=== PATIENT | female | born 1990 | race Two or more races ===

== ENCOUNTER 2023-01-11 14:28 | Outpatient (REF) | payer MEDICAID, SELFPAY ==
--- NOTE | ~2023-01-11 | US_ITS ---
EXAMINATION: US THYROID CLINICAL INFORMATION: Enlarged thyroid. COMPARISON: None available. TECHNIQUE: Linear transducer grayscale and color Doppler examination with attention to the region of the thyroid. FINDINGS: SIZE: Measurements of the thyroid lobes and nodules are given in sagittal, anteroposterior and transverse dimensions respectively. Right Thyroid Lobe: 4.8 x 1.4 x 1.2 cm, volume 4.2 mL. Parenchyma: The gland echotexture is homogeneous. Thyroid vascularity is increased. Left Thyroid Lobe: 5.9 x 2.4 x 3.9 cm, volume 28.9 mL. Parenchyma: The gland echotexture is heterogeneous. Thyroid vascularity is increased. Isthmus: 0.3 cm in maximum AP dimension. Estimated total number of nodules greater than or equal to 1 cm: 1. Turkey Boner nodules are described as follows: 1. Location: Right inferior. Size: 0.5 x 0.3 x 0.4 cm, volume 0.03 mL. Nodule characteristics: Composition: Solid (2). Echogenicity: Isoechoic (1). Shape: Not taller than wide (0). Margins: Smooth (0). Echogenic Foci: None (0). ACR TI-RADS total points: 3 ACR TI-RADS category: 3 2. Location: Left mid. Size: 4.5 x 2.3 x 3.6 cm, volume 19.7 mL. Nodule characteristics: Composition: Solid (2). Echogenicity: Hypoechoic (2). Shape: Not taller than wide (0). Margins: Smooth (0). Echogenic Foci: None (0). ACR TI-RADS total points: 4 ACR TI-RADS category: 4 NODES: No lymphadenopathy is seen in the tissue surrounding the thyroid gland. US/US thyroid IMPRESSION: A 4.5 cm TR 4 left thyroid nodule meets criteria for tissue sampling. Hypervascular, mildly heterogeneous thyroid which can be seen in the setting of thyroiditis. No other nodule meets criteria for follow-up. ACR TI-RADS RECOMMENDATION REFERENCE: Ultrasound-guided fine-needle aspiration, followup ultrasound, no further follow up. * TR1 (0 point) and TR2 (2 points): No FNA or follow up. * TR3 (3 points): FNA if more than or equal to 2.5 cm in maximum dimension, followup ultrasound in 1, 3 and 5 years if 1.5 to 2.4 cm in maximum dimension. * TR4 (4-6 points): FNA if more than or equal to 1.5 cm in maximum dimension, followup ultrasound in 1, 2, 3 and 5 years if 1 to 1.4 cm in maximum dimension. * TR5 (more than or equal to 7 points): FNA if more than or equal to 1 cm in maximum dimension, followup ultrasound every year for 5 years if 0.5 to 0.9 cm in maximum dimension. * TR3, TR4 or TR5 nodules that are below the size threshold for followup receive no follow up.
== END 2023-01-11 14:29 | disposition home or self-care (01) ==
LOC: HO.US 14:28
PROVIDERS: PCP Internal Medicine; Visit Provider Advanced Practice Midwife
DX: E04.2 Nontoxic multinodular goiter (principal)
CPT/HCPCS: 76536

== ENCOUNTER → 2023-01-21 11:46 | Outpatient (BNVA) | payer MEDICAID, SELFPAY | PROVIDERS: PCP Internal Medicine; Visit Provider Internal Medicine | DX: E04.2 Nontoxic multinodular goiter (principal) | CPT/HCPCS: 36415; 84439; 84443; 99202 ==

== ENCOUNTER 2023-01-21 12:43 | Outpatient (REF) | payer MEDICAID, SELFPAY ==
[2023-01-21 15:32] LABS: Free T4 (Free Thyroxine) 0.84 ng/dL (0.71-1.85); Thyroid Stimulating Hormone 0.53 uIU/mL (0.32-4.0)
== END 2023-01-21 12:44 | disposition home or self-care (01) ==
LOC: HO.10HDL 12:43
PROVIDERS: Visit Provider Internal Medicine
DX: E04.2 Nontoxic multinodular goiter (principal)
CPT/HCPCS: 36415; 84439; 84443

== ENCOUNTER 2023-03-01 11:19 | Outpatient (REF) | payer MEDICAID, SELFPAY ==
--- NOTE | ~2023-03-01 | CT_ITS ---
EXAMINATION: CT SOFT TISSUE NECK WITHOUT CONTRAST CLINICAL INFORMATION: Nontoxic multinodular goiter COMPARISON: Previous thyroid ultrasound December 2022 TECHNIQUE: Helical imaging was performed in the axial plane with generation of coronal and sagittal reformatted images. This CT examination was performed using dose optimization techniques as appropriate, variously including the following: *Automated exposure control *Adjustment of mA and/or kV according to patient size (this includes techniques or standardized protocols for targeted exams where dose is matched to indication/reason for exam; i.e. extremities or head) *Use of iterative reconstruction technique DLP: 331 mGy-cm FINDINGS: There is a large left thyroid nodule that is essentially occupies the entire left lobe and measures 3 x 3 x 4 cm. This displaces the trachea to the right. No right thyroid nodule is seen. There are no enlarged cervical lymph nodes adjacent to the thyroid gland. There is shotty upper cervical lymphadenopathy. The nasal oral and hypopharynx and larynx are normal.. The salivary glands are normal. The orbits are normal. Visualized paranasal sinuses, mastoid air cells and middle ears are clear. Superior mediastinum is normal. The lung apices are clear. Bony structures are normal. CT/CT soft tissue neck wo IV con IMPRESSION: Large 3 x 3 x 4 cm left thyroid nodule displacing the trachea to the right. No enlarged lymph nodes.
== END 2023-03-01 11:20 | disposition home or self-care (01) ==
LOC: HO.CT 11:19
PROVIDERS: PCP Internal Medicine; Visit Provider Internal Medicine
DX: E04.2 Nontoxic multinodular goiter (principal)
CPT/HCPCS: 70490

== ENCOUNTER 2023-03-30 15:13 | Outpatient (REF) | payer MEDICAID, SELFPAY ==
[2023-03-30 16:19] LABS: MANUAL DIFF FLAG NO
[2023-03-30 16:30] LABS: Basophils Percent Auto 0.3 % (0-2); Eosinophils Percent Auto 0.5 % (0-4); Hematocrit 41.9 % (37.0-47.0); Hemoglobin 13.9 g/dl (12.0-16.0); Imm Gran Abs Auto 0.02 X10*3/uL (0.00-0.03); Imm Gran Pct Auto 0.3 % (0.0-0.4); Lymphocytes Absolute Auto 2.1 X10*3/uL (1.2-4.9); Mean Corpuscular HGB Conc 33.2 g/dl (31.0-35.0); Mean Corpuscular Hemoglobin 30.3 pg (27.0-33.0); Mean Corpuscular Volume 91.3 fL (80.0-98.0); Mean Platelet Volume 10.3 fL (9.4-12.3); Monocytes Absolute Auto 0.4 X10*3/uL (0.1-1.2); Monocytes Percent Auto 5.4 % (2-11); Neutrophils Absolute Auto 4.7 x10*3/uL (2.0-8.3); Neutrophils Percent Auto 64.5 % (45-73); Platelet Count 269 X10*3/uL (160-400); Red Blood Count 4.59 X10*6/uL (4.20-5.50); Red Cell Distribution Width 12.6 % (11.0-16.0); White Blood Count 7.3 X10*3/uL (4.8-10.8)
[2023-03-30 18:30] LABS: Alanine Aminotransferase 11 U/L (0-31); Albumin Level 4.6 g/dL (3.5-5.0); Alkaline Phosphatase 58 U/L (39-117); Anion Gap 15 (12-20); Aspartate Amino Transferase 21 U/L (5-31); Bilirubin Total 0.8 mg/dL (0.0-1.0); Blood Urea Nitrogen 8 mg/dL (9-16); Calcium 10.1 mg/dL (8.4-10.2); Carbon Dioxide 21 mmol/L (22-29); Chloride 108 mmol/L (96-108); Estimated Glomerular Filt Rate > 60; Glucose Random 66 mg/dL (60-115); Iron 75 mcg/dL (30-160); Percent Iron Saturation 21 % (15-50); Potassium 4.3 mmol/L (3.3-5.1); Sodium 140 mmol/L (135-145); Total Iron Binding Capacity 350 mcg/dL (228-428); Total Protein 8.3 g/dL (6.5-8.0); Unsaturated Iron Binding 275 ug/dL
[2023-03-30 18:46] LABS: Ferritin 28 ng/mL (10-122); TSH reflex Free T4 1.11 uIU/mL (0.32-4.0); Vitamin D 25-OH Total 17.5 ng/mL (>30)
== END 2023-03-30 15:14 | disposition home or self-care (01) ==
LOC: HO.HHCL 15:13
PROVIDERS: Visit Provider Registered Nurse
DX: R42 Dizziness and giddiness (principal)
CPT/HCPCS: 36415; 80053; 82306; 82728; 83540; 84443; 85025

== ENCOUNTER 2023-04-15 14:11 | Outpatient (REF) | payer MEDICAID, SELFPAY ==
--- NOTE | ~2023-04-15 | US_ITS ---
History: 33-year-old female with large left thyroid nodule. Procedure performed: Ultrasound-guided left thyroid nodule biopsy Slasher: Alexia Sauceda MD Anesthesia: 5 mL 1% lidocaine Specimen: Three 22-gauge FNA samples of left thyroid nodule Drain: None Estimated blood loss: Minimal Consultations: None Procedure in detail: Informed and written consent was obtained. The patient was positioned supine with the neck hyperextended on the ultrasound examination table. Ultrasound of the patient's neck showed a heterogeneous, hypervascular, large left thyroid nodule measuring 4.7 x 2.24 x 3.86 cm with a volume of 21.3 cc. An appropriate site on the skin was noted for biopsy. This area was prepped and draped. Under ultrasound, 1% lidocaine was injected subcutaneously and extended to the nodule. Next, a total of three 22-gauge FNA samples were obtained from the nodule and given to pathology, who confirmed adequate sampling. Slides were made and extra material placed in CytoLyt. A sterile dressing was applied. Summary: Successful ultrasound-guided thyroid nodule biopsy.
[2023-04-15] MEDS: Lidocaine HCl 1 % MPF 5 ML VIAL SUBCUT (15:54)
== END 2023-04-15 14:12 | disposition home or self-care (01) ==
LOC: HO.US 14:11
PROVIDERS: PCP Internal Medicine; Visit Provider Internal Medicine
DX: E04.2 Nontoxic multinodular goiter (principal)
CPT/HCPCS: 10005; 88172; 88173; 88305

== ENCOUNTER → 2023-04-15 14:14 | Outpatient (BNV) | payer MEDICAID, SELFPAY | PROVIDERS: PCP Internal Medicine; Visit Provider Radiology Vascular & Interventional Radiology | DX: E04.2 Nontoxic multinodular goiter (principal) | CPT/HCPCS: 10005 ==

== ENCOUNTER 2023-04-30 12:06 | Outpatient (REF) | payer MEDICAID, SELFPAY ==
[2023-04-30 15:10] LABS: Alanine Aminotransferase 9 U/L (0-31); Albumin Level 4.6 g/dL (3.5-5.0); Alkaline Phosphatase 58 U/L (39-117); Anion Gap 11 (12-20); Aspartate Amino Transferase 13 U/L (5-31); Bilirubin Total 0.9 mg/dL (0.0-1.0); Blood Urea Nitrogen 6 mg/dL (9-16); Calcium 9.7 mg/dL (8.4-10.2); Carbon Dioxide 23 mmol/L (22-29); Chloride 110 mmol/L (96-108); Estimated Glomerular Filt Rate > 60; Glucose Random 70 mg/dL (60-115); Potassium 3.4 mmol/L (3.3-5.1); Sodium 141 mmol/L (135-145); Total Protein 7.8 g/dL (6.5-8.0)
[2023-04-30 15:25] LABS: Free T4 (Free Thyroxine) 0.72 ng/dL (0.71-1.85); Thyroid Stimulating Hormone 0.61 uIU/mL (0.32-4.0); Vitamin D 25-OH Total 26.4 ng/mL (>30)
[2023-05-03 12:04] LABS: Calcium (PTHI) 9.6 mg/dL (8.6-10.2); PTHI 28 pg/mL (16-77)
== END 2023-04-30 12:07 | disposition home or self-care (01) ==
LOC: HO.LAB 12:06
PROVIDERS: PCP Internal Medicine; Visit Provider Internal Medicine
DX: E55.9 Vitamin D deficiency, unspecified (principal); E04.2 Nontoxic multinodular goiter
CPT/HCPCS: 36415; 80053; 82306; 83970; 84100; 84439; 84443

== ENCOUNTER 2023-08-03 09:45 | Outpatient (AMB) | payer MEDICAID, SELFPAY ==
--- NOTE | 2023-08-03 09:47 | MHC.OFFVIS ---
Intake Vital Signs 08/03/23 09:49 Height 5 ft 3 in Weight 142 lb 13.753 oz BMI 25.3 BP 102/52 L Blood Pressure Location Lt brachial Position Sitting Pulse 103 H Pulse Source Pulse Oximeter Intake Visit Reasons: post op follow up-CONFIRMED Intake Note: Patient present for post op total thyroidectomy. Previously followed by Dr. Harrington. Customer Sales Advisor Required: Yes Customer Sales Advisor Language: Bulgarian Information Interpreted: non-clinical & clinical Accompanied by: Daughter Allergies No Known Allergies [No Known Allergies*] Allergy (Verified 08/03/23 09:54) Medication List - Last Reconciled 08/03/23 by Olivier Camarena MD albuterol sulfate 90 mcg/actuation 2 puffs inhalation Q6H PRN levothyroxine 100 mcg PO DAILY HPI HPI Comments History of Present Illness Details 33 YO F with no significant PMHx who is seen in consultation for multinodular thyroid at the request of PCP. Was initially diagnosed with multinodular thyroid in 2022 with thyroid US revealing a large left lobe thyroid nodule. She does report dysphagia as well as hoarseness of voice. She also reports tenderness in the neck. Reports weight gain and hair loss. Otherwise denies symptoms of hyper or hypothyroidism. Denies any history of head or neck irradiation. Does report a Family history of thyroid cancer in her Grandfather. Thyroid US: 01/11/2023 Right Thyroid Lobe: 4.8 x 1.4 x 1.2 cm, volume 4.2 mL. Parenchyma: The gland echotexture is homogeneous. Thyroid vascularity is increased. Left Thyroid Lobe: 5.9 x 2.4 x 3.9 cm, volume 28.9 mL. Parenchyma: The gland echotexture is heterogeneous. Thyroid vascularity is increased. Isthmus: 0.3 cm in maximum AP dimension. Estimated total number of nodules greater than or equal to 1 cm: 1. Co Pilot nodules are described as follows: 1. Location: Right inferior. ?? ? Size: 0.5 x 0.3 x 0.4 cm, volume 0.03 mL. ?? ? Nodule characteristics: ?? ? Composition: Solid (2). ?? ? Echogenicity: Isoechoic (1). ?? ? Shape: Not taller than wide (0). ?? ? Margins: Smooth (0). ?? ? Echogenic Foci: None (0). ?? ? ACR TI-RADS total points: 3 ?? ? ACR TI-RADS category: 3 2. Location: Left mid. ?? ? Size: 4.5 x 2.3 x 3.6 cm, volume 19.7 mL. ?? ? Nodule characteristics: ?? ? Composition: Solid (2). ?? ? Echogenicity: Hypoechoic (2). ?? ? Shape: Not taller than wide (0). ?? ? Margins: Smooth (0). ?? ? Echogenic Foci: None (0). ?? ? ACR TI-RADS total points: 4 ?? ? ACR TI-RADS category: 4 NODES: No lymphadenopathy is seen in the tissue surrounding the thyroid gland. Labs: S/ P total thyroidectomy by with benign pathology. Currently on 100 mcg levothyroxine [facility] Medical History (Updated 08/03/23 @ 09:56 by Olivier Camarena MD) Hypothyroidism, postsurgical Thyroid neoplasm Vitamin D deficiency Multinodular thyroid Surgical History (Updated 07/26/23 @ 11:02 by ABELARDO Ibarra) Hx of total thyroidectomy Family History Father Medical history unknown Mother HTN (hypertension) Paternal Grandfather Thyroid condition Social History Alcohol intake: never Patient Tobacco Use Status: Never used Tobacco Physical Exam Vital Signs: Last Vital Signs Pulse 103 H 08/03/23 09:49 BP 102/52 L 08/03/23 09:49 BMI result Body Mass Index 25.3 Const Other: Healing scar status post thyroidectomy Assessment & Plan Assessment & Plan (1) Hypothyroidism, postsurgical: Code(s): E89.0 - Postprocedural hypothyroidism Plan: This is 33-year-old female status post total thyroidectomy for multinodular goiter. She is currently on 100 mcg levothyroxine. She appears to be clinically euthyroid. Plan is to check TSH and free T4 and adjust levothyroxine Coding Level of Care Code Est Pt Level 3 (32558) Diagnoses Hypothyroidism, postsurgical E89.0
[2023-08-03 09:49] VITALS: BP 102/52; PULSE 103; BMI 25.3
== END 2023-08-03 10:38 | disposition home or self-care (01) ==
PROVIDERS: PCP Internal Medicine; Visit Provider Internal Medicine Endocrinology, Diabetes & Metabolism
DX: E89.0 Postprocedural hypothyroidism (principal)
CPT/HCPCS: 99213

== ENCOUNTER → 2023-08-03 09:45 | Outpatient (BNVA) | payer MEDICAID, SELFPAY | PROVIDERS: PCP Internal Medicine; Visit Provider Internal Medicine Endocrinology, Diabetes & Metabolism | DX: E89.0 Postprocedural hypothyroidism (principal) | CPT/HCPCS: 99212 ==

== ENCOUNTER 2023-08-06 10:33 | Outpatient (REF) | payer MEDICAID, SELFPAY ==
[2023-08-06 12:47] LABS: Albumin Level 4.5 g/dL (3.5-5.0); Calcium 8.2 mg/dL (8.4-10.2)
[2023-08-06 13:00] LABS: Free T4 (Free Thyroxine) 1.34 ng/dL (0.71-1.85); Thyroid Stimulating Hormone < 0.01 uIU/mL (0.32-4.0)
== END 2023-08-06 10:34 | disposition home or self-care (01) ==
LOC: HO.LAB 10:33
PROVIDERS: PCP Internal Medicine; Visit Provider Internal Medicine Endocrinology, Diabetes & Metabolism
DX: E89.0 Postprocedural hypothyroidism (principal)
CPT/HCPCS: 36415; 82040; 82310; 84439; 84443

== ENCOUNTER 2023-08-09 11:14 | Outpatient (REF) | payer MEDICAID, SELFPAY ==
[2023-08-09 13:03] LABS: Albumin Level 4.4 g/dL (3.5-5.0); Calcium 8.3 mg/dL (8.4-10.2); Phosphorus 3.6 mg/dL (2.7-4.5)
[2023-08-11 15:54] LABS: Calcium (PTHI) 8.4 mg/dL (8.6-10.2); PTHI 16 pg/mL (16-77)
== END 2023-08-09 11:15 | disposition home or self-care (01) ==
LOC: HO.LAB 11:14
PROVIDERS: PCP Internal Medicine; Visit Provider Internal Medicine Endocrinology, Diabetes & Metabolism
DX: E89.0 Postprocedural hypothyroidism (principal)
CPT/HCPCS: 36415; 82040; 82310; 83970; 84100

== ENCOUNTER 2023-08-26 09:59 | Outpatient (REF) | payer MEDICAID, SELFPAY ==
[2023-08-26 11:50] LABS: Albumin Level 4.4 g/dL (3.5-5.0); Calcium 9.1 mg/dL (8.4-10.2); Phosphorus 3.6 mg/dL (2.7-4.5)
== END 2023-08-26 10:00 | disposition home or self-care (01) ==
LOC: HO.LAB 09:59
PROVIDERS: PCP Internal Medicine; Visit Provider Internal Medicine Endocrinology, Diabetes & Metabolism
DX: E20.9 Hypoparathyroidism, unspecified (principal)
CPT/HCPCS: 36415; 82040; 82310; 84100

== ENCOUNTER 2023-11-12 13:03 | Outpatient (REF) | payer MEDICAID, SELFPAY ==
[2023-11-12 14:28] LABS: Albumin Level 4.4 g/dL (3.5-5.0); Phosphorus 3.9 mg/dL (2.7-4.5)
== END 2023-11-12 13:04 | disposition home or self-care (01) ==
LOC: HO.LAB 13:03
PROVIDERS: PCP Internal Medicine; Visit Provider Internal Medicine Endocrinology, Diabetes & Metabolism
DX: E20.9 Hypoparathyroidism, unspecified (principal)
CPT/HCPCS: 36415; 82040; 82310; 84100

== ENCOUNTER 2023-11-17 17:51 | Outpatient (REF) | payer MEDICAID, SELFPAY ==
[2023-11-18 22:39] LABS: C. trachomatis RNA TMA NOT DETECTED (NOT DETECTED); Candida glabrata RNA NOT DETECTED (NOT DETECTED); Candida species RNA NOT DETECTED (NOT DETECTED); N. gonorrhoeae RNA TMA NOT DETECTED (NOT DETECTED); Trichomonas vaginalis RNA NOT DETECTED (NOT DETECTED)
[2023-11-25 03:14] LABS: HPV mRNA E6/E7 rflx Not Detected (Not Detected)
== END 2023-11-17 17:52 | disposition home or self-care (01) ==
LOC: HO.HHCLNP 17:51
PROVIDERS: Visit Provider Advanced Practice Midwife
DX: Z01.419 Encounter for gynecological examination (general) (routine) without abnormal findings (principal); N89.8 Other specified noninflammatory disorders of vagina; Z11.3 Encounter for screening for infections with a predominantly sexual mode of transmission
CPT/HCPCS: 36415; 81513; 87481; 87491; 87591; 87624; 87661; 88142

== ENCOUNTER 2023-12-31 10:35 | Outpatient (REF) | payer MEDICAID, SELFPAY ==
[2023-12-31 13:25] LABS: Free T4 (Free Thyroxine) 1.04 ng/dL (0.71-1.85); Thyroid Stimulating Hormone < 0.01 uIU/mL (0.32-4.0)
== END 2023-12-31 10:36 | disposition home or self-care (01) ==
LOC: HO.LAB 10:35
PROVIDERS: PCP Internal Medicine; Visit Provider Internal Medicine Endocrinology, Diabetes & Metabolism
DX: E89.0 Postprocedural hypothyroidism (principal)
CPT/HCPCS: 36415; 84439; 84443

== ENCOUNTER 2024-01-04 09:55 | Outpatient (AMB) | payer MEDICAID, SELFPAY ==
[2024-01-04 10:01] VITALS: BP 94/60; PULSE 89; BMI 25.1
--- NOTE | 2024-01-04 10:01 | A.OFFVIS_ITS ---
Intake Vital Signs 01/04/24 10:01 Height 5 ft 3 in Weight 141 lb 15.643 oz BMI 25.1 BP 94/60 Blood Pressure Location Lt brachial Position Sitting Pulse 89 Pulse Source Pulse Oximeter Intake Visit Reasons: f/u postsurgical hypothyroidism-confirmed Intake Note: Patient present today for Post-surgical hypothyroidism follow up visit. Linotype Machinist Apprentice Required: Yes Linotype Machinist Apprentice Language: Botswanan Information Interpreted: non-clinical & clinical Accompanied by: Child Allergies No Known Allergies [No Known Allergies*] Allergy (Verified 08/03/23 09:54) Medication List - Last Reconciled 01/04/24 by Olivier Camarena MD albuterol sulfate 90 mcg/actuation 2 puffs inhalation Q6H PRN calcitriol 0.25 mcg PO DAILY calcium citrate 200 mg PO BID levothyroxine 88 mcg PO DAILY HPI HPI Comments History of Present Illness Details 33 YO F with no significant PMHx who is seen in consultation for multinodular thyroid at the request of PCP. Was initially diagnosed with multinodular thyroid in 2022 with thyroid US revealing a large left lobe thyroid nodule. She does report dysphagia as well as hoarseness of voice. She also reports tenderness in the neck. Reports weight gain and hair loss. Otherwise denies symptoms of hyper or hypothyroidism. Denies any history of head or neck irradiation. Does report a Family history of thyroid cancer in her Grandfather. Thyroid US: 01/11/2023 Right Thyroid Lobe: 4.8 x 1.4 x 1.2 cm, volume 4.2 mL. Parenchyma: The gland echotexture is homogeneous. Thyroid vascularity is increased. Left Thyroid Lobe: 5.9 x 2.4 x 3.9 cm, volume 28.9 mL. Parenchyma: The gland echotexture is heterogeneous. Thyroid vascularity is increased. Isthmus: 0.3 cm in maximum AP dimension. Estimated total number of nodules greater than or equal to 1 cm: 1. Drum Handler nodules are described as follows: 1. Location: Right inferior. ?? ? Size: 0.5 x 0.3 x 0.4 cm, volume 0.03 mL. ?? ? Nodule characteristics: ?? ? Composition: Solid (2). ?? ? Echogenicity: Isoechoic (1). ?? ? Shape: Not taller than wide (0). ?? ? Margins: Smooth (0). ?? ? Echogenic Foci: None (0). ?? ? ACR TI-RADS total points: 3 ?? ? ACR TI-RADS category: 3 2. Location: Left mid. ?? ? Size: 4.5 x 2.3 x 3.6 cm, volume 19.7 mL. ?? ? Nodule characteristics: ?? ? Composition: Solid (2). ?? ? Echogenicity: Hypoechoic (2). ?? ? Shape: Not taller than wide (0). ?? ? Margins: Smooth (0). ?? ? Echogenic Foci: None (0). ?? ? ACR TI-RADS total points: 4 ?? ? ACR TI-RADS category: 4 NODES: No lymphadenopathy is seen in the tissue surrounding the thyroid gland. Labs: S/ P total thyroidectomy by with benign pathology. Currently on 100 mcg levothyroxine [facility] Medical History (Updated 08/16/23 @ 07:57 by Olivier Camarena MD) Hypoparathyroidism Hypothyroidism, postsurgical Thyroid neoplasm Vitamin D deficiency Multinodular thyroid Surgical History Hx of total thyroidectomy Family History Father Medical history unknown Mother HTN (hypertension) Paternal Grandfather Thyroid condition Social History Alcohol intake: never Patient Tobacco Use Status: Never used Tobacco Physical Exam Vital Signs: Last Vital Signs Pulse 89 01/04/24 10:01 BP 94/60 01/04/24 10:01 BMI result Body Mass Index 25.1 Const Other: Healing scar status post thyroidectomy Assessment & Plan Assessment & Plan (1) Hypothyroidism, postsurgical: Code(s): E89.0 - Postprocedural hypothyroidism Plan: This is 33-year-old female status post total thyroidectomy for mult inodular goiter. She is currently on 100 mcg levothyroxine. She appears to be clinically euthyroid. with suppressed TSH Plan is to decrease levothyoxine to 88 ug check TSH and free T4 and adjust le vothyroxine (2) Hypoparathyroidism: Code(s): E20.9 - Hypoparathyroidism, unspecified Plan: Currently on calcitriol and calcium supplementation.? Temporary or permanent? Will have patient hold calcitriol and recheck calcium and albumin in 4 days or sooner if patient develops symptoms of hypocalcemia. Continue calcium supplementation Orders: Orders Free T4 (Free Thyroxine) 6 Weeks E89.0 - Postprocedural hypothyroidism Calcium 4 Days E20.9 - Hypoparathyroidism, unspecified Thyroid Stimulating Hormone 6 Weeks E89.0 - Postprocedural hypothyroidism Albumin Level 4 Days E20.9 - Hypoparathyroidism, unspecified Medications: New levothyroxine 88 mcg PO DAILY 30 tabs 4RF Discontinued levothyroxine Discontinued Reason: Duplicate 100 mcg PO DAILY 30 tabs 3RF E20.9 - Hypoparathyroidism, unspecified Coding Level of Care Code Est Pt Level 3 (79532) Diagnoses Hypothyroidism, postsurgical E89.0 Hypoparathyroidism E20.9
== END 2024-01-04 10:22 | disposition home or self-care (01) ==
PROVIDERS: PCP Internal Medicine; Referring Provider Internal Medicine; Visit Provider Internal Medicine Endocrinology, Diabetes & Metabolism
DX: E89.0 Postprocedural hypothyroidism (principal); E20.9 Hypoparathyroidism, unspecified
CPT/HCPCS: 99213

== ENCOUNTER → 2024-01-04 09:55 | Outpatient (BNVA) | payer MEDICAID, SELFPAY | PROVIDERS: PCP Internal Medicine; Visit Provider Internal Medicine Endocrinology, Diabetes & Metabolism | DX: E89.0 Postprocedural hypothyroidism (principal); E20.9 Hypoparathyroidism, unspecified | CPT/HCPCS: 99212 ==

== ENCOUNTER 2024-01-10 09:50 | Outpatient (REF) | payer MEDICAID, SELFPAY ==
[2024-01-10 11:12] LABS: Albumin Level 4.3 g/dL (3.5-5.0); Calcium 8.4 mg/dL (8.4-10.2)
== END 2024-01-10 09:51 | disposition home or self-care (01) ==
LOC: HO.LAB 09:50
PROVIDERS: PCP Internal Medicine; Visit Provider Internal Medicine Endocrinology, Diabetes & Metabolism
DX: E20.9 Hypoparathyroidism, unspecified (principal)
CPT/HCPCS: 36415; 82040; 82310

== ENCOUNTER 2024-01-21 10:08 | Outpatient (REF) | payer MEDICAID, SELFPAY ==
[2024-01-21 11:20] LABS: Albumin Level 4.3 g/dL (3.5-5.0); Calcium 8.5 mg/dL (8.4-10.2)
[2024-01-21 11:47] LABS: Free T4 (Free Thyroxine) 1.17 ng/dL (0.71-1.85); Thyroid Stimulating Hormone < 0.01 uIU/mL (0.32-4.0)
== END 2024-01-21 10:09 | disposition home or self-care (01) ==
LOC: HO.LAB 10:08
PROVIDERS: Visit Provider Internal Medicine Endocrinology, Diabetes & Metabolism
DX: E89.0 Postprocedural hypothyroidism (principal)
CPT/HCPCS: 36415; 82040; 82310; 84439; 84443

== ENCOUNTER 2024-02-22 10:19 | Outpatient (REF) | payer MEDICAID, SELFPAY ==
[2024-02-22 11:59] LABS: Free T4 (Free Thyroxine) 0.99 ng/dL (0.71-1.85); Thyroid Stimulating Hormone 0.03 uIU/mL (0.32-4.0)
== END 2024-02-22 10:20 | disposition home or self-care (01) ==
LOC: HO.LAB 10:19
PROVIDERS: PCP Internal Medicine; Visit Provider Internal Medicine Endocrinology, Diabetes & Metabolism
DX: E89.0 Postprocedural hypothyroidism (principal)
CPT/HCPCS: 36415; 84439; 84443

== ENCOUNTER 2024-04-06 11:22 | Outpatient (REF) | payer MEDICAID, SELFPAY ==
[2024-04-06 14:12] LABS: Free T4 (Free Thyroxine) 1.06 ng/dL (0.71-1.85); Thyroid Stimulating Hormone 0.06 uIU/mL (0.32-4.0)
== END 2024-04-06 11:23 | disposition home or self-care (01) ==
LOC: HO.LAB 11:22
PROVIDERS: PCP Internal Medicine; Visit Provider Internal Medicine Endocrinology, Diabetes & Metabolism
DX: E89.0 Postprocedural hypothyroidism (principal)
CPT/HCPCS: 36415; 84439; 84443

== ENCOUNTER 2024-06-19 11:30 | Outpatient (AMB) | payer MEDICAID, SELFPAY ==
--- NOTE | 2024-06-19 11:32 | MHC.OFFVIS ---
Vital Signs 06/19/24 11:33 Height 5 ft 3 in Weight 151 lb 14.376 oz BMI 26.9 BP 104/56 L Blood Pressure Location Rt brachial Position Sitting Pulse 84 Pulse Source Pulse Oximeter Intake Visit Reasons: f/u post-surgical hypothyroidism/ Conf Intake Note: Patient present today for Post-surgical hypothyroidism follow up visit. Insurance Healthcare Consultant Required: Yes Insurance Healthcare Consultant Language: Centrifuge Operator Services: Insurance Healthcare Consultant Present Insurance Healthcare Consultant Name: Laura ALMARAZ Information Interpreted: non-clinical & clinical Accompanied by: Self / Same As Patient Allergies No Known Allergies [No Known Allergies*] Allergy (Verified 06/19/24 11:35) Medication List - Last Reconciled 06/19/24 by Olivier Camarena MD albuterol sulfate 90 mcg/actuation 2 puffs inhalation Q6H PRN calcitriol 0.25 mcg PO DAILY calcium citrate 200 mg PO BID levothyroxine 50 mcg PO DAILY HPI Comments Details: 34 YO F with no significant PMHx who is seen in consultation for multinodular thyroid at the request of PCP. Was initially diagnosed with multinodular thyroid in 2022 with thyroid US revealing a large left lobe thyroid nodule. She does report dysphagia as well as hoarseness of voice. She also reports tenderness in the neck. Reports weight gain and hair loss. Otherwise denies symptoms of hyper or hypothyroidism. Denies any history of head or neck irradiation. Does report a Family history of thyroid cancer in her Grandfather. Thyroid US: 01/11/2023 Right Thyroid Lobe: 4.8 x 1.4 x 1.2 cm, volume 4.2 mL. Parenchyma: The gland echotexture is homogeneous. Thyroid vascularity is increased. Left Thyroid Lobe: 5.9 x 2.4 x 3.9 cm, volume 28.9 mL. Parenchyma: The gland echotexture is heterogeneous. Thyroid vascularity is increased. Isthmus: 0.3 cm in maximum AP dimension. Estimated total number of nodules greater than or equal to 1 cm: 1. Machine Setup Operator nodules are described as follows: 1. Location: Right inferior. ?? ? Size: 0.5 x 0.3 x 0.4 cm, volume 0.03 mL. ?? ? Nodule characteristics: ?? ? Composition: Solid (2). ?? ? Echogenicity: Isoechoic (1). ?? ? Shape: Not taller than wide (0). ?? ? Margins: Smooth (0). ?? ? Echogenic Foci: None (0). ?? ? ACR TI-RADS total points: 3 ?? ? ACR TI-RADS category: 3 2. Location: Left mid. ?? ? Size: 4.5 x 2.3 x 3.6 cm, volume 19.7 mL. ?? ? Nodule characteristics: ?? ? Composition: Solid (2). ?? ? Echogenicity: Hypoechoic (2). ?? ? Shape: Not taller than wide (0). ?? ? Margins: Smooth (0). ?? ? Echogenic Foci: None (0). ?? ? ACR TI-RADS total points: 4 ?? ? ACR TI-RADS category: 4 NODES: No lymphadenopathy is seen in the tissue surrounding the thyroid gland. Labs: S/ P total thyroidectomy by with benign pathology. Currently on 50 mcg levothyroxine. Also off calcitriol 0.25 mcg daily and on calcium 200 mg b.i.d. for post-surgical hypoparathyroidism. No plans for [facility] Medical History (Updated 08/16/23 @ 07:57 by Olivier Camarena MD) Hypoparathyroidism Hypothyroidism, postsurgical Thyroid neoplasm Vitamin D deficiency Multinodular thyroid Surgical History Hx of total thyroidectomy Family History Father Medical history unknown Mother HTN (hypertension) Paternal Grandfather Thyroid condition Social History Alcohol intake: never Patient Tobacco Use Status: Never used Tobacco Physical Exam Vital Signs: BMI result Body Mass Index 26.9 Const Other: Healing scar status post thyroidectomy Assessment & Plan Assessment & Plan (1) Hypothyroidism, postsurgical: Code(s): E89.0 - Postprocedural hypothyroidism Category: Medical Plan: This is 33-year-old female status post total thyroidectomy for multinodular goiter. She is currently on 50 mcg levothyroxine. She appears to be clinically euthyroid. Plan is to re check TSH and free T4 and adjust levothyroxine (2) Hypoparathyroidism: Code(s): E20.9 - Hypoparathyroidism, unspecified Category: Medical Plan: Currently off calcitriol and on calcium supplementation. most likely Temporary Will have patient recheck calcium and albumin off the calcitriol. Continue calcium supplementation Orders: Orders Calcium Today E20.9 - Hypoparathyroidism, unspecified Albumin Level Today E20.9 - Hypoparathyroidism, unspecified Coding Level of Care Code Est Pt Level 3 (78026) Diagnoses Hypothyroidism, postsurgical E89.0 Hypoparathyroidism E20.9
[2024-06-19 11:33] VITALS: BP 104/56; PULSE 84; BMI 26.9
== END 2024-06-19 11:50 | disposition home or self-care (01) ==
PROVIDERS: PCP Internal Medicine; Visit Provider Internal Medicine Endocrinology, Diabetes & Metabolism
DX: E89.0 Postprocedural hypothyroidism (principal); E20.9 Hypoparathyroidism, unspecified
CPT/HCPCS: 99213

== ENCOUNTER 2024-06-19 11:30 | Outpatient (REF) | payer MEDICAID, SELFPAY ==
[2024-06-19 14:07] LABS: Albumin Level 4.4 g/dL (3.5-5.0); Calcium 8.8 mg/dL (8.4-10.2)
[2024-06-19 15:05] LABS: Free T4 (Free Thyroxine) 0.84 ng/dL (0.71-1.85); Thyroid Stimulating Hormone 3.04 uIU/mL (0.32-4.0)
== END 2024-06-19 11:31 | disposition home or self-care (01) ==
LOC: HO.LAB 11:30
PROVIDERS: PCP Internal Medicine; Visit Provider Internal Medicine Endocrinology, Diabetes & Metabolism
DX: E89.0 Postprocedural hypothyroidism (principal); E20.9 Hypoparathyroidism, unspecified
CPT/HCPCS: 36415; 82040; 82310; 84439; 84443; 99212

== ENCOUNTER 2024-11-13 09:44 | Outpatient (REF) | payer MEDICAID, SELFPAY ==
--- OUTSIDE RECORDS SUMMARY | 2024-11-13 10:41 | XMS_ITS | Clinical Summary ---
Author Organization [employer] Address [address] [place] [address] 7 [place] [address] Care Team Providers Care Mat Roller Name Role Phone Tristan Worley MD Primary Care Provide r Allergies No known active allergies Medications albuterol 108 (90 Base) MCG/ACT inhaler Inhale 2 puffs every 4 (four) hours if needed. Inhale 2 puff by inhalation every 4-6 hours needed 1 Active fluticasone (Flovent) 44 MCG/ACT inhaler Inhale 1-2 puffs in the morning and at bedtime. Rinse mouth with water after use to reduce aftertaste and incidence of candidiasis. Do not swallow. 10.6 g 11 3 Active cholecalcifero l (Vitamin D-3) 25 MCG (1000 UT) capsuleIndicat ions:Low vitamin D level Take 1 capsule (25 mcg) by mouth in the morning. 60 capsule 3 3 Active medroxyPROGEST ERone (Depo-Provera) 150 MG/ML injection TAKE TO DOCTOR'S OFFICE FOR ADMINISTRATION EVERY 3 MONTHS 1 mL 1 4 Active Active Problems Problem Noted Date Diagnosed Date H/O thyroidectomy 09/22/2023 Thyroid nodule 01/19/2023 Assessment & Plan (04/27/2023 3:44 PM EDT): Patient is here for a follow up She is Following with [facility], last available consult note from 01/21/23 ? ? 03/01/23: CT soft tissue neck revealed a large 3 x 3 x 4 cm left thyroid nodule displacing the trachea to the right. No enlarged lymph nodes. ? ? Had biopsy 2022. ? ? Pathology read as Suspicious for Malignancy ( category 5 ) I discussed case at length with Dr Harrington. She recommended we referred patient to Dr richmond ENT and Endocrine surgeon. She mentioned that she would contact Dr richmond directly to try and get her an appointment soon Patient agreeable with the Plan Assessment & Plan (03/31/2023 2:52 PM EDT): ? ? Following with [facility], last available consult note from 01/21/23 ? ? Pt continues with compressive symptoms, discussed during specialist appt ? ? 03/01/23: CT soft tissue neck revealed a large 3 x 3 x 4 cm left thyroid nodule displacing the trachea to the right. No enlarged lymph nodes. ? ? Reports plan for upcoming biopsy April 2023, provider called office to try to move up timeline ? ? ED/urgent care precautions reviewed Assessment & Plan (01/19/2023 8:33 AM EDT): Patient evaluated by NAIMA Farr for depo provera, during that evaluation pt with c/o enlarged thyroid gland. U/S ordered , done 01/11/2023 showed: 4.5 cm TR 4 left thyroid nodule that meets criteria for tissue sampling. Plan: FNA thyroid nodule Endocrinology referral Mild persistent asthma without complication 10/2022 Assessment & Plan (04/27/2023 11:35 AM EDT): No recent exacerbations On Flovent 110 mcg FU 3 months Encounter for annual physical exam 01/19/2023 Encounters Date Type Department Care Team Description 09/18/2024 Travel from Last 3 Months Immunizations Name Administration Dates Next Due Influenza injectable quadrivalent preservative f ree 07/09/2021,11/17/2018 Pfizer Covid-19 Vaccine 12+ 09/22/2021, Tdap 05/01/2021,03/11/2015 Family History Medical History Relation Name Comments Cancer Maternal Grandfather Diabetes Maternal Grandmother Stroke Maternal Grandmother Asthma Son Relation Name Status Comments Maternal Grandfather Maternal Grandmother Son Social History Tobacco Use Types Packs/Day Years Used Date Smoking Tobacco: Never Passive Smoke Exposure: Never Smokeless Tobacco: Never Tobacco Cessation:Counseling Given: Not Answered Alcohol Use Standard Drinks/Week Comments Never 0 (1 standard drink = 0.6 oz pur e alcohol) Depression Answer Date Recorded Patient Health Questionnaire-9 Score 0 04/27/2023 Housing Stability Answer Date Recorded What is your housing situation today? I have stephanie ibarra 01/18/[address] you li ve. Do you have problems with any of the following? None of the above 01/18/2024 Food Insecurity Answer Date Recorded Within the past 12 months, y ou worried that your food would run out before you got money to buy more: Never True 01/18/2024 Within the past 12 months,th e food you bought just didn't last and you didn't have enough money to get more: Never True Transportation Answer Date Recorded In the past 12 months, has l ack of transportation kept you from medical appts, meetings, work or from getting things needed for daily living? No 01/18/2024 Utilities Answer Date Recorded In the past 12 months, has t he electric, gas, oil or water company threatened to shut off services in your home? No 01/18/2024 Depression Answer Date Recorded Patient Health Questionnaire-2 Score 0 04/27/2023 Comments No Sex and Gender Information Value Date Recorded Sex Assigned at Female 07/20/2022 10:19 AM EDT Legal Sex Female 10:19 AM EDT Gender Identity Female 07/20/2022 10:19 AM EDT Sexual Orientation Straight 07/20/2022 10 :19 AM EDT Last Filed Vital Signs Vital Sign Reading Time Taken Comments Blood Pressure 111/71 11/17/2023 10:25 AM EST Pulse 84 11/17/2023 10:25 AM EST Temperature 37.4 ??C (99.4 ??F) 11/17/2023 10:[address] Respiratory Rate 20 11/17/2023 10:25 AM EST Oxygen Saturation 99% 11/17/2023 10:25 AM EST Inhaled Oxygen Concentration - - Weight 64.5 kg (142 lb 3.2 oz) 11/17/2023 10:25 AM EST Height 160 cm (5' 3 ) 11/17/2023 10:25 AM EST Body Mass Index 25.19 11/17/2023 10:25 AM EST Plan of Treatment Upcoming Encounters Date Type Department Care Team (Late st Contact Info) Description 11/16/2024 10:15 AM EST Office Visit [facility] [address] [place] [address] Juliette Bernardo, CNM [address] [facility] [place] [address] Health Maintenance Due Date Last Done Comments HIV Screening 1988 Alcohol/Substance Use Screening 2000 Hepatitis C Screening 01/24/2006 Hepatitis B Vaccines (1 of 3 - 19+ 3-dose series) 01/24/2007 Pneumococcal Vaccine: Pediatrics (0 to 5 Years) and At-Risk Patients (6 to 49) Years) (1 of 2 - PCV) 01/24/2007 Depression Screening 04/27/2024 04/27/2023, 04/27/2023 COVID-19 Vaccine (3 - 2023-2 5 season) 2024 09/22/2021, 09/01/2021 Influenza Vaccine (#1) 2024 , 11/17/2018 Family Planning (PISQ) 11/17/2024 11/17/2023 Tobacco Screening 11/17/2024 11/17/2023 SDOH Screening 01/17/2025 01/18/2024 Pap Smear 11/17/2026 11/17/2023, 06/26/2020 Cervical Cancer Screening 11/17/2028 HPV/Cotest 11/17/2028 11/17/2023 DTaP/Tdap/Td Vaccines (3 - T d or Tdap) 05/01/2031 05/01/2021, 03/11/2015 Zoster Vaccines (1 of 2) 01/24/2038 RSV Patients and Patients Aged 60 years or older (1 - 1-dose 75+ series) 01/24/2063 HIB Vaccines Aged Out No longer eligi ble based on patient's age to complete this topic HPV Vaccines Aged Out No longer eligi ble based on patient's age to complete this topic Hepatitis A Vaccines Aged Out No long er eligible based on patient's age to complete this topic IPV Vaccines Aged Out No longer eligi ble based on patient's age to complete this topic Meningococcal Vaccine Aged Out No zachariah brendan eligible based on patient's age to complete this topic RSV under 20 months Aged Out No longe r eligible based on patient's age to complete this topic Rotavirus Vaccines Aged Out No longer eligible based on patient's age to complete this topic Procedures Procedure Name Priority Date/Time Associated Diagnosis Comments HPV MRNA E6/E7 REFLEX TO HPV 16, 18/45 Routine 11/17/2023 10:43 AM EST PAP SMEAR Routine 11/17/2023 10:43 AM EST Cervical cancer screening from Last 3 Months or Most Recently Relevant to Health Maintenance Results * HPV mRNA E6/E7 w/Reflex to HPV Genotypes 16, 18/45 (11/17/2023 10:43 AM EST) HPV nRNA E6/E7 Not Detected Not Detected [facility] Comment:Methodology: Transcr iption-Mediated AmplificationThis assay detects E6/E7 viral messenger RNA (mRNA) from 14high-risk HPV types (16,18,31,33,35,39,45,51,52,56,58,59,66,68).Cervical sources are required for HPV testing.If a vaginal source from a patient who has had atotal hysterectomy with removal of cervix wassubmitted, please contact the testing laboratoryfor alternative testing options.For additional information, please refer tohttp://education.[employer]/faq/JTC803h4(This link if provided for information/educational purposes only.)THIS TEST WAS PERFORMED AT:[employer] [place] [id number] VILLATORO MD HPV mRNA E6/E7 [facility] HPV 16 RNA [facility] HPV 18/45 RNA [facility] 11/17/2023 10:4 3 AM EST 11/18/2023 10:00 AM EST Juliette WHITE LAB CYTOLOGY ORDERABLES F inal Result [facility] [address] [place] [phone] [phone] * Pap Smear (11/17/2023 10:43 AM EST) Swab Cervix uteri structure / Unknown 11/17/2023 10:43 AM EST 11/18/2023 10:00 AM EST Narrative [facility] - 12/01/2023 4:15 PM EDT ----- ------- Name: Robb Ceron ?Age/Sex: 33/F ? : 1990 Unit#: [id number] ?? Attend Dr: JULIETTE BERNARDO ?Re11/17/23 ?Status: DEP REF ? Location: HO.HHCLNP ? Disch: ? ----- ------- SPEC : [id number] ? RECD: 11/18/23-999 ? STATUS: ??SOUT ? REQ NUM: [id number] ? GILL: 11/17/23 ? SUBM DR: JULIETTE BERNARDO CNCamille ? ENTERED: ??11/18/23 ?SP TYPE: Pap Smr ?OTHR : ? ORDERED: ??Pap Smear ? Interpretation ?? Satisfactory for evaluation. ?? Mild inflammation. ?? Negative for intraepithelial lesion or malignancy. ?HPV mRNA E6/E7: ?NOT DETECTED ? This assay detects E6/E7 viral messenger RNA (mRNA) from 14 high-risk HPV types (16, 18, ?? 31, 33, 35, 39, 45, 51, 52, 56, 58, 59, 66, 68) ?? HPV testing performed by [employer], [place], [place]. ??See reference laboratory ?? portion of the EMR for entire report. ?Clinical Information LMP: Unknown date Previous PAP test: Unknown date/findings ? Material Received ?? ThinPrep-Cervical ----- ------- Signed (signature on file) AJAY Garcia ([facility]) 12/01/23 1615 ? ----- ------- ? END OF REPORT ? us Juliette Bernardo [facility] CYTOLOGY ORDERABLES F inal Result [facility] [address] [place] [phone] from Last 3 Months or Most Recently Relevant to Health Maintenance Insurance [facility] Care Teams Mat Roller Relationship Specialty Start Date End Date Tristan Worley MD [address] [place] [phone] PCP - General Internal Medicine 11/17/18
--- OUTSIDE RECORDS SUMMARY | 2024-11-13 10:41 | XMS_ITS | Clinical Summary ---
Author Organization [facility] Address [address] [place] [address] Care Team Providers Care Licensed Insurance Agent Name Role Phone Unavailable Primary Care Provider Unavailabl e Social History Tobacco Use Types Packs/Day Years Used Date Smoking Tobacco: Never Assessed Comments Unknown Sex and Gender Information Value Date Recorded Sex Assigned at Not on file Legal Sex Female 3:00 AM EST Gender Identity Not on file Sexual Orientation Not on file Plan of Treatment Health Maintenance Due Date Last Done Comments DTaP,Tdap,and Td Vaccines (1 - Tdap) 01/24/2007 Hepatitis B Vaccines (1 of 3 - 19+ 3-dose series) 01/24/2007 Cervical Cancer Screening: P ap Smear 01/24/2009 Depression Screening 05/15/2024 HIV Screening 05/15/2024 Hepatitis C Screening 05/15/2024 Social Influencers of Health Screening 05/15/2024 COVID-19 Vaccine ( - 2023-2 5 season) 2024 Influenza Vaccine (#1) 2024 HIB Vaccines Aged Out No longer eligi [...] on patient's age to complete this topic MMR Vaccines Aged Out No longer eligi ble based on patient's age to complete this topic Meningococcal ACWY Vaccine Aged Out N o longer eligible based on patient's age to complete this topic Meningococcal B Vacine Aged Out No lo nger eligible based on patient's age to complete this topic Pneumococcal Vaccine: Pediat rics (0 to 5 Years) and At-Risk Patients (6 to 64 Years) Aged Out No longer eligible b ased on patient's age to complete this topic RSV Immunization Patients Un larisa 20 months Aged Out No longer eligible b ased on patient's age to complete this topic Varicella Vaccines Aged Out No longer eligible based on patient's age to complete this topic
[2024-11-13 11:10] LABS: Calcium 7.3 mg/dL (8.4-10.2)
[2024-11-13 11:27] LABS: Thyroid Stimulating Hormone 4.08 uIU/mL (0.32-4.0)
== END 2024-11-13 09:45 | disposition home or self-care (01) ==
LOC: HO.LAB 09:44
PROVIDERS: PCP Internal Medicine; Visit Provider Internal Medicine Endocrinology, Diabetes & Metabolism
DX: E89.0 Postprocedural hypothyroidism (principal); E20.9 Hypoparathyroidism, unspecified
CPT/HCPCS: 36415; 82040; 82310; 84439; 84443; 99212

== ENCOUNTER 2024-11-13 10:14 | Outpatient (AMB) | payer MEDICAID, SELFPAY ==
--- NOTE | 2024-11-13 10:25 | A.OFFVIS_ITS ---
Vital Signs 11/13/24 10:27 Height 5 ft 3 in Weight 131 lb 2.801 oz BMI 23.2 BP 90/58 L Blood Pressure Location Rt brachial Position Sitting Pulse 66 Pulse Source Pulse Oximeter Pulse Oximetry (%) 98 Oxygen Delivery Method Room Air Intake Visit Reasons: surg hypothyroidism and hypoparathyroidism Intake Note: Patient present today for Post-surgical hypothyroidism follow up visit. Patient reports cramping on hands and feet for a few weeks. She states she was sick on 11/03/24 and had to stay in the bed for 5 days in which she was not able to eat and had nausea and vomiting. She reports she did not have any headaches. Was taking Tylenol for the sickness. Executive Administrative Asst Required: Yes Executive Administrative Asst Language: Uniform Patrol Police Officer Services: Executive Administrative Asst Present Executive Administrative Asst Name: Eboni Information Interpreted: non-clinical & clinical Accompanied by: Mother Allergies No Known Allergies [No Known Allergies*] Allergy (Verified 11/13/24 10:27) Medication List - Last Reconciled 11/13/24 by Olivier Camarena MD albuterol sulfate 90 mcg/actuation 2 puffs inhalation Q6H PRN calcium citrate 200 mg PO BID levothyroxine 50 mcg PO DAILY HPI Comments Details: 34 YO F with no significant PMHx who is seen in consultation for multinodular thyroid at the request of PCP. Was initially diagnosed with multinodular thyroid in 2022 with thyroid US revealing a large left lobe thyroid nodule. She does report dysphagia as well as hoarseness of voice. She also reports tenderness in the neck. Reports weight gain and hair loss. Otherwise denies symptoms of hyper or hypothyroidism. Denies any history of head or neck irradiation. Does report a Family history of thyroid cancer in her Grandfather. Thyroid US: 01/11/2023 Right Thyroid Lobe: 4.8 x 1.4 x 1.2 cm, volume 4.2 mL. Parenchyma: The gland echotexture is homogeneous. Thyroid vascularity is increased. Left Thyroid Lobe: 5.9 x 2.4 x 3.9 cm, volume 28.9 mL. Parenchyma: The gland echotexture is heterogeneous. Thyroid vascularity is increased. Isthmus: 0.3 cm in maximum AP dimension. Estimated total number of nodules greater than or equal to 1 cm: 1. Platform Operations Director nodules are described as follows: 1. Location: Right inferior. ?? ? Size: 0.5 x 0.3 x 0.4 cm, volume 0.03 mL. ?? ? Nodule characteristics: ?? ? Composition: Solid (2). ?? ? Echogenicity: Isoechoic (1). ?? ? Shape: Not taller than wide (0). ?? ? Margins: Smooth (0). ?? ? Echogenic Foci: None (0). ?? ? ACR TI-RADS total points: 3 ?? ? ACR TI-RADS category: 3 2. Location: Left mid. ?? ? Size: 4.5 x 2.3 x 3.6 cm, volume 19.7 mL. ?? ? Nodule characteristics: ?? ? Composition: Solid (2). ?? ? Echogenicity: Hypoechoic (2). ?? ? Shape: Not taller than wide (0). ?? ? Margins: Smooth (0). ?? ? Echogenic Foci: None (0). ?? ? ACR TI-RADS total points: 4 ?? ? ACR TI-RADS category: 4 NODES: No lymphadenopathy is seen in the tissue surrounding the thyroid gland. Labs: S/ P total thyroidectomy by with benign pathology. Currently on 50 mcg levothyroxine. on calcium 200 mg b.i.d. No plans for . was on calcitriol postoperatively transient hypoparathyroidism currently off. Repeat labs are pending . Cramping in hands>feet 3 days a go. Was sick with flu Some numbness in face, No syncope or SZ. [facility] Medical History (Updated 08/16/23 @ 07:57 by Olivier Camarena MD) Hypoparathyroidism Hypothyroidism, postsurgical Thyroid neoplasm Vitamin D deficiency Multinodular thyroid Surgical History Hx of total thyroidectomy Family History Father Medical history unknown Mother HTN (hypertension) Paternal Grandfather Thyroid condition Social History Alcohol intake: never Patient Tobacco Use Status: Never used Tobacco Physical Exam Vital Signs: Last Vital Signs Pulse 66 11/13/24 10:27 BP 90/58 L 11/13/24 10:27 Pulse Ox 98 11/13/24 10:27 Oxygen Delivery Method Room Air 11/13/24 10:27 BMI result Body Mass Index 23.2 Const Other: Healing scar status post thyroidectomy. ?? postive Chvosteks and Trousseaus Assessment & Plan Assessment & Plan (1) Hypothyroidism, postsurgical: Code(s): E89.0 - Postprocedural hypothyroidism Category: Medical Plan: This is 34-year-old female status post total thyroidectomy for multinodular goiter. She is currently on 50 mcg levothyroxine. She appears to be clinically euthyroid. Plan is to increase levothyroxine to 88 mcg re check TSH and free T4 in 6 weeks (2) Hypoparathyroidism: Code(s): E20.9 - Hypoparathyroidism, unspecified Category: Medical Plan: Currently off calcitriol and on calcium supplementation. patient was symptomatic and calcium level returned at 7.3 with positive Chvostek sign positive Trousseau sign patient was sent to [facility] emergency room for further evaluation and calcium repletion via ambulance. Once patient's discharge, she should go back on the calcitriol 0.25 mcg q.d. and recheck calcium and albumin in 10 days later. It appears that hypoparathyroidism may be permanent since it is present for almost a year. May talk to patient about going on recombinant PTH namely Yorvipath in future Orders: Orders Calcium 10 Days E20.9 - Hypoparathyroidism, unspecified Albumin Level 10 Days E20.9 - Hypoparathyroidism, unspecified Free T4 (Free Thyroxine) 6 Weeks E89.0 - Postprocedural hypothyroidism Thyroid Stimulating Hormone 6 Weeks E89.0 - Postprocedural hypothyroidism Medications: New calcitriol 0.25 mcg PO DAILY 30 caps 4RF levothyroxine 75 mcg PO DAILY 30 tabs 5RF Discontinued levothyroxine Discontinued Reason: Doctor's Order 50 mcg PO DAILY 30 tabs 5RF Coding Level of Care Code Est Pt Level 3 (28172) Diagnoses Hypothyroidism, postsurgical E89.0 Hypoparathyroidism E20.9
[2024-11-13 10:27] VITALS: BP 90/58; PULSE 66; O2SAT 98; BMI 23.2
--- OUTSIDE RECORDS SUMMARY | 2024-11-13 11:26 | XMS_ITS | Clinical Summary ---
Author Organization [employer] Address [address] [place] [address] 7 [place] [address] Care Team Providers Care Lab Rn Name Role Phone Tristan Worley MD Primary [...] a follow up She is Following with [facility], last available consult note from 01/21/23 [...] 2:52 PM EDT): ? ? Following with [facility], last available consult note from 01/21/23 [...] (01/19/2023 8:33 AM EDT): Patient evaluated by CNCamille Farr for depo provera, during that evaluation [...] Encounters Date Type Department Care Team Description 11/13/2024 Orders Only GENERIC EXTERNAL DATA DEPARTMENT Provider, Generic External Data 09/18/2024 Travel from Last 3 Months Immunizations [...] Description 11/16/2024 10:15 AM EST Office Visit [facility] [address] [place], [place] [phone] Juliette Bernardo, NAIMA [address] [place] [address] Health Maintenance Due Date Last Done Comments HIV Screening 1988 Alcohol/Substance Use Screening 2000 Hepatitis C Screening 01/24/2006 Hepatitis B Vaccines (1 of 3 - 19+ 3-dose series) 01/24/2007 Pneumococcal Vaccine: Pediatrics (0 to 5 Years) and At-Risk Patients (6 to 49) Years) (1 of 2 - PCV) 01/24/2007 Depression Screening 04/27/2024 04/27/2023, 04/27/2023 COVID-19 Vaccine ( - 2023-2 5 season) 2024 09/22/2021, 09/01/2021 [...] Procedure Name Priority Date/Time Associated Diagnosis Comments ALBUMIN Routine 11/13/2024 10:09 AM EST CALCIUM Routine 11/13/2024 10:09 AM EST HPV MRNA E6/E7 REFLEX TO HPV 16, 18/45 Routine 11/17/2023 10:43 AM EST PAP SMEAR Routine 11/17/2023 10:43 AM EST Cervical cancer screening from Last 3 Months or Most Recently Relevant to Health Maintenance Results * HPV mRNA E6/E7 w/Reflex to HPV Genotypes 16, 18/45 (11/17/2023 10:43 AM EST) HPV nRNA E6/E7 Not Detected Not Detected [facility] Comment:Methodology: Transcr iption-Mediated AmplificationThis assay detects E6/E7 viral messenger RNA (mRNA) from 14high-risk HPV types (16,18,31,33,35,39,45,51,52,56,58,59,66,68).Cervical sources are required for HPV testing.If a vaginal source from a patient who has had atotal hysterectomy with removal of cervix wassubmitted, please contact the testing laboratoryfor alternative testing options.For additional information, please refer tohttp://education.[employer]/faq/KJE421a3(This link if provided for information/educational purposes only.)THIS TEST WAS PERFORMED AT:[employer] [place] [phone] VILLATORO MD HPV mRNA E6/E7 TNP [facility] HPV 16 RNA [facility] HPV 18/45 RNA [facility] 11/17/2023 10:4 3 AM EST 11/18/2023 10:00 AM EST us Juliette Bernardo CNM LAB CYTOLOGY ORDERABLES F inal Result [facility] [address] [place] [phone] * Pap Smear (11/17/2023 10:43 AM EST) Swab Cervix uteri structure / Unknown 11/17/2023 10:43 AM EST 11/18/2023 10:00 AM EST Narrative [facility] - 12/01/2023 4:15 PM EDT ----- ------- Name: Robb Ceron ?Age/Sex: 33/F ? : 1990 Unit#: [id number] ?? Attend Dr: JULIETTE BERNARDO CNM ?Re11/17/23 ?Status: DEP REF ? Location: HO.HHCLNP ? Disch: ? ----- ------- SPEC : [id number] ? RECD: 11/18/23-1000 ? STATUS: ??SOUT ? REQ NUM: [id number] ? GILL: 11/17/23-1043 ? SUBM DR: JULIETTE BERNARDO CNM ? ENTERED: ??11/18/23-1152 ?SP TYPE: Pap Smr ?OTHR DR: ? ORDERED: ??Pap Smear ? Interpretation ?? Satisfactory for evaluation. ?? Mild inflammation. ?? Negative for intraepithelial lesion or malignancy. ?HPV mRNA E6/E7: ?NOT DETECTED ? This assay detects E6/E7 viral messenger RNA (mRNA) from 14 high-risk HPV types (16, 18, ?? 31, 33, 35, 39, 45, 51, 52, 56, 58, 59, 66, 68) ?? HPV testing performed by [employer], [place], [place]. ??See reference laboratory ?? portion of the EMR for entire report. ?Clinical Information LMP: Unknown date Previous PAP test: Unknown date/findings ? Material Received ?? ThinPrep-Cervical ----- ------- Signed (signature on file) AJAY Garcia ([facility]) 12/01/23 1615 ? ----- ------- ? END OF REPORT ? Juliette Bernardo [facility] CYTOLOGY ORDERABLES F inal Result [facility] [address] [place] [phone] from Last 3 Months or Most Recently Relevant to Health Maintenance Insurance [facility] C3 Care Teams Lab Rn Relationship Specialty Start Date End Date Tristan Worley MD [address] [place] [phone] PCP - General Internal Medicine 11/17/18
--- OUTSIDE RECORDS SUMMARY | 2024-11-13 11:26 | XMS_ITS | Clinical Summary ---
Author Organization [facility] Address [address] [place] [address] Care Team Providers Care Manager Molecular Name Role Phone Unavailable Primary Care Provider [...]
--- OUTSIDE RECORDS SUMMARY | 2024-11-13 11:26 | XMS_ITS | Encounter Summary ---
Author Organization [employer] Address [address] [facility] [address] [place] [address] Care Team Providers Care Aerial Gunner Name Role Phone Tristan Worley MD Primary Care Provide r Encounter Details Date Type Department Care Team (Late st Contact Info) Description 11/13/2024 Orders Only GENERIC EXTERNAL DATA DEPARTMENT Provider, Generic External Data Social History Tobacco Use Types Packs/Day Years Used Date Smoking Tobacco: Never Passive Smoke Exposure: Never Smokeless Tobacco: Never Alcohol Use Standard Drinks/Week Comments Never 0 [...] Orientation Straight 07/20/2022 10 :19 AM EDT documented as of this encounter Plan of Treatment Upcoming Encounters Date Type Department Care Team (Late st Contact Info) Description 11/16/2024 10:15 AM EST Office Visit [facility] [address] [place] [address] Juliette Hutson, CNM [address] [place] [address] Pending Results Name Type Priority Associated Diagnoses Date /Time Calcium Lab Routine 11/13/2024 10: 09 AM EST Albumin Lab Routine 11/13/2024 10: 09 AM EST documented as of this encounter Procedures Procedure Name Priority Date/Time Associated Diagnosis Comments CALCIUM Routine 11/13/2024 10:09 AM EST ALBUMIN Routine 11/13/2024 10:09 AM EST documented in this encounter Visit Diagnoses Not on filedocumented in this encounter Additional Health Concerns Assessment Noted Time PHQ-9 Depression Total Score: 0 04/27/20 23 11:22 AM EDT documented as of this encounter Care Teams Aerial Gunner Relationship Specialty Start Date End Date Tristan Worley MD [address] [place] [address] PCP - General Internal Medicine 11/17/18 documented as of this encounter
== END 2024-11-13 11:38 | disposition home or self-care (01) ==
PROVIDERS: PCP Internal Medicine; Visit Provider Internal Medicine Endocrinology, Diabetes & Metabolism
DX: E89.0 Postprocedural hypothyroidism (principal); E20.9 Hypoparathyroidism, unspecified
CPT/HCPCS: 99213

== ENCOUNTER 2024-11-27 10:03 | Outpatient (REF) | payer MEDICAID, SELFPAY ==
--- OUTSIDE RECORDS SUMMARY | 2024-11-27 11:11 | XMS_ITS | Clinical Summary ---
Author Organization [facility] Address [address] [place] [address] Care Team Providers Care Behavior Analyst Name Role Phone Unavailable Primary Care Provider [...]
--- OUTSIDE RECORDS SUMMARY | 2024-11-27 11:11 | XMS_ITS | Clinical Summary ---
Author Organization [employer] Address [address] [place] [address] 7t [place] [address] Care Team Providers Care Card Painter Name Role Phone Tristan Worley MD Primary [...] a follow up She is Following with [facility] Endo, last available consult note from 01/21/23 [...] 2:52 PM EDT): ? ? Following with [facility] Endo, last available consult note from 01/21/23 [...] Encounters Date Type Department Care Team Description 11/17/2024 Patient Outreach [facility] MED[facility] [address] [place], [place] [phone] Tristan Worley MD Transition Of Care (Tcm) (HDF- LVM ) 11/16/2024 Telephone [facility] MED & PEDS [address] [place], [place] [phone] Tristan Worley MD No Show 11/14/2024 Patient Outreach [facility] [address] [place] [address] Tristan Worley MD Care Coordination (CM/CHW outreach) 11/14/2024 Telephone [facility] [address] [place] [phone] Tristan Worley MD Care Management (C3CM- chart review) 11/13/2024 Orders Only GENERIC EXTERNAL DATA DEPARTMENT [...] Care Team (Late st Contact Info) Description 12/14/2024 1:30 PM EDT Office Visit [facility] [address] [place] [address] Tristan Worley MD [address] [place] [address] Health Maintenance Due Date Last Done Comments HIV Screening 1990 Alcohol/Substance Use Screening 2000 Family Planning (PISQ) 01/24/2003 Hepatitis C Screening 01/24/2006 Hepatitis B Vaccines (1 of 3 - 19+ 3-dose series) 01/24/2007 Pneumococcal Vaccine: Pediatrics (0 to 5 Years) and At-Risk Patients (6 to 49) Years) (1 of 2 - PCV) 01/24/2007 Depression Screening 04/27/2024 04/27/2023, 04/27/2023 COVID-19 Vaccine (3 - 2023-2 5 season) 2024 09/22/2021, 09/01/2021 Tobacco Screening 11/17/2024 11/17/2023 SDOH Screening 01/17/2025 01/18/2024 Cervical Cancer Screening 11/17/2028 HPV/Cotest 11/17/2028 11/17/2023 Pap Smear 11/17/2028 11/17/2023, 06/26/2020 DTaP/Tdap/Td Vaccines (3 - T d or Tdap) 05/01/2031 05/01/2021, 03/11/2015 Zoster Vaccines (1 of 2) 01/24/2038 RSV Patients and Patients Aged 60 years or older (1 - 1-dose 75+ series) 01/24/2063 Influenza Vaccine Completed 11/14/2024, 07/09/2021, 11/17/2018 HIB Vaccines Aged Out No longer eligi [...] Procedure Name Priority Date/Time Associated Diagnosis Comments TSH Routine 11/13/2024 10:09 AM EST T4, FREE Routine 11/13/2024 10:09 AM EST ALBUMIN Routine 11/13/2024 10:09 AM EST CALCIUM Routine 11/13/2024 10:09 AM EST HPV MRNA E6/E7 REFLEX TO HPV 16, 18/45 Routine 11/17/2023 10:43 AM EST PAP SMEAR Routine 11/17/2023 10:43 AM EST Cervical cancer screening from Last 3 Months or Most Recently Relevant to Health Maintenance Results * (ABNORMAL) TSH (11/13/2024 10:09 AM EST) Thyroid Stimulating Hormone 4.08(H) 0.32 - 4.0 uIU/mL [facility] Comment:Note: A sustained TS H level above 2.5 uIU/mL may warrant further investigation. TSH 3rd Generation ([facility]) 11/13/2024 10:0 9 AM EST 11/13/2024 10:09 AM EST Generic External Data Provider LAB BLOOD ORDERAB LES Final Result Performing Organization Address City/[facility]/ZIP Co de Phone Number [facility] [address] [place] [phone] * T4, Free (11/13/2024 10:09 AM EST) Pathologist [facility] Free T4 (Free Thyroxine) 0.90 0.71 - 1.85 ng/dL [facility] 11/13/2024 10:0 9 AM EST 11/13/2024 10:09 AM EST Generic External Data Provider LAB BLOOD ORDERAB LES Final Result Performing Organization Address [facility] Co de Phone Number [facility] [address] [place] [phone] * (ABNORMAL) Calcium (11/13/2024 10:09 AM EST) Pathologist [facility] Calcium 7.3(L) 8.4 - 10.2 mg/dL [facility] 11/13/2024 10:0 9 AM EST 11/13/2024 10:09 AM EST Generic External Data Provider LAB BLOOD ORDERAB LES Final Result Performing Organization Address [facility] Co de Phone Number [facility] [address] [place] [phone] * Albumin (11/13/2024 10:09 AM EST) Pathologist [facility] Albumin Level 4.0 3.5 - 5.0 g/dL [facility] 11/13/2024 10:0 9 AM EST 11/13/2024 10:09 AM EST us Generic External Data Provider LAB BLOOD ORDERAB LES Final Result Performing Organization Address [facility] Co de Phone Number [facility] [address] [place] [phone] * HPV mRNA E6/E7 w/Reflex to HPV Genotypes 16, 18/45 (11/17/2023 10:43 AM EST) HPV nRNA E6/E7 Not Detected Not Detected [facility] Comment:Methodology: Transcr iption-Mediated AmplificationThis assay detects E6/E7 viral messenger RNA (mRNA) from 14high-risk HPV types (16,18,31,33,35,39,45,51,52,56,58,59,66,68).Cervical sources are required for HPV testing.If a vaginal source from a patient who has had atotal hysterectomy with removal of cervix wassubmitted, please contact the testing laboratoryfor alternative testing options.For additional information, please refer tohttp://education.Getix/faq/DFR849b3(This link if provided for information/educational purposes only.)THIS TEST WAS PERFORMED AT:[email or web address] [place] [phone] VILLATORO MD HPV mRNA E6/E7 TNP [facility] HPV 16 RNA [facility] HPV 18/45 RNA [facility] 11/17/2023 10:4 3 AM EST 11/18/2023 10:00 AM EST us Sandra Bernardo CNM LAB CYTOLOGY ORDERABLES F inal Result Performing Organization Address [facility]/ZIP Co de Phone Number [facility] [address] [place] [phone] * Pap Smear (11/17/2023 10:43 AM EST) Swab Cervix uteri structure / Unknown 11/17/2023 10:43 AM EST 11/18/2023 10:00 AM EST John [facility] - 12/01/2023 4:15 PM EDT ----- ------- Name: Robb Ceron ?Age/Sex: 33/F ? : 1990 Unit#: [id number] ?? Attend Dr: SANDRA BERNARDO CNM ?Re11/17/23 ?Status: DEP REF ? Location: [facility]CLNP ? Disch: ? ----- ------- SPEC : [id number] ? RECD: 11/18/23-1000 ? STATUS: ??SOUT ? REQ NUM: [id number] ? GILL: 11/17/23-1043 ? SUBM DR: RIZZARDINI,SANDRA CNM ? ENTERED: ??11/18/23-1152 ?SP TYPE: Pap Smr ?OTHR : ? [...] 66, 68) ?? HPV testing performed by [facility], [place], [place]. ??See reference laboratory ?? portion of the EMR for entire report. ?Clinical Information LMP: Unknown date Previous PAP test: Unknown date/findings ? Material Received ?? ThinPrep-Cervical ----- ------- Signed (signature on file) AJAY Garcia (ASCP) 12/01/23 8216 ? ----- ------- ? END OF REPORT ? us Sandra Bernardo CN LAB CYTOLOGY ORDERABLES F inal Result [facility] [address] [place], [place] [phone] from Last 3 Months or Most Recently Relevant to Health Maintenance [facility] Care Teams Card Painter Relationship Specialty Start Date End Date Tristan Worley MD [address] [place] [phone] PCP - General Internal Medicine 11/17/18
--- OUTSIDE RECORDS SUMMARY | 2024-11-27 11:11 | XMS_ITS | Encounter Summary ---
Author Organization [employer] Address [address] [facility] 7 [place] [address] Care Team Providers Care Dental Intern Name Role Phone Tristan Worley MD Primary Care Provide r Reason for Visit * Reason Onset Date Comments Care Management 11/14/2024 [facility]- chart revi ew Encounter Details Date Type Department Care Team (Late st Contact Info) Description 11/14/2024 Telephone [facility] MEDICINE [address] [place], [place] [phone] Tristan Worley MD [address] [place], [place] [phone] Care Management ([facility]- chart review) Social History Tobacco Use Types Packs/Day Years [...] AM EDT documented as of this encounter Miscellaneous Notes * Telephone Encounter - Brisa Cruz RN - 11/14/2024 8:03 AM EST PIPE Cruz RN, performed chart review, in anticipation of initial assessment with patient, as patient has stratified for C3 Adult Complex Care through the ADT feed. History significant for thyroid nodule, mild persistent asthma without complication, and thyroidectomy. Specialists include [facility] Endocrinology and ENT. ED visits within the last 12 months include [facility] ED 11/13/24. [facility] on 11/13/24 Dx hypocalcemia. Discharge pending. Last appointment in PCP office on 11/17/23. Patient no showed PE on 01/27/24. Next appointment scheduled for 11/16/24 at 10:00am. documented in this encounter Plan of Treatment Upcoming Encounters Date Type Department Care Team (Late st Contact Info) Description 12/14/2024 1:30 PM EDT Office Visit [facility] MEDICINE [address] [place] [address] Tristan Worley MD [address] [place] [address] documented as of this encounter Visit Diagnoses Not on filedocumented in this encounter Additional Health Concerns Assessment Noted Time PHQ-9 Depression Total Score: 0 04/27/20 23 11:22 AM EDT documented as of this encounter Care Teams Dental Intern Relationship Specialty Start Date End Date Tristan Worley MD [address] [place] [address] PCP - General Internal Medicine 11/17/18 documented as of this encounter
--- OUTSIDE RECORDS SUMMARY | 2024-11-27 11:11 | XMS_ITS | Encounter Summary ---
Author Organization [employer] Address [address] [facility] 7t [place] [address] Care Team Providers Care Rinkman Name Role Phone Tristan Worley MD Primary Care Provide r Reason for Visit * Reason Onset Date Comments No Show 11/16/2024 Encounter Details Date Type Department Care Team ([facility] st Contact Info) Description 11/16/2024 Telephone [facility] MED & PEDS [address] [place], [place] [phone] Tristan Worley MD [address] [place], [place] [phone] No Show Social History Tobacco Use Types Packs/Day Years [...] encounter Miscellaneous Notes * Telephone Encounter - Andrew Borrero - 11/16/2024 12:07 PM EST No Show 11/16/24 for pelvic visit documented in this encounter Plan of Treatment Upcoming Encounters Date Type Department Care Team (Late st Contact Info) Description 12/14/2024 1:30 PM EDT Office Visit [facility] MED[facility] [address] [place] [address] Tristan Worley MD [address] [place] [address] documented as of this encounter Visit Diagnoses Not on filedocumented in this encounter Additional Health Concerns Assessment Noted Time PHQ-9 Depression Total Score: 0 04/27/20 23 11:22 AM EDT documented as of this encounter Care Teams Rinkman Relationship Specialty Start Date End Date Tristan Worley MD [address] [place] [address] PCP - General Internal Medicine 11/17/18 documented as of this encounter
--- OUTSIDE RECORDS SUMMARY | 2024-11-27 11:11 | XMS_ITS | Encounter Summary ---
Author Organization [employer] Address [address] [facility] 7 [place] [address] Care Team Providers Care Melter Caster Name Role Phone Tristan Worley MD Primary Care Provide r Reason for Visit * Reason Comments Transition Of Care (Tcm) HDF- LVM Encounter Details Date Type Department Care Team ([facility] st Contact Info) Description 11/17/[address] [facility] MEDICINE [address] [place] [address] Tristan Worley MD [address] [place] [address] Transition Of Care (Tcm) (HDF- LVM ) Social History Tobacco Use Types Packs/Day Years [...] as of this encounter Miscellaneous Notes * Significant Event - Tank Hickman - 11/17/2024 9:13 AM EST 11/17/24 0912 Hospital Discharges and Admission for [facility] Type of Visit Hospital Admission Date of Admission/Visit 11/13/24 Date of Discharge 11/16/24 Facility [facility] Diagnosis General medical , Hypocalcemia , Hypothyroid, Asthma, Hypokalemia , Anemia, Numbness , Blood pressure lower than prior measurement, Flu-like symptoms Disposition Discharged Home Follow-Up Actions Follow-Up Needed Provider appointment Follow-Up Outcome Left Voicemail Initial Contact Date 11/17/24 CC Tank Palencia placed outbound call to patient for HDF outreach. CC placing call to offer patient with an HDF appointment with provider. No answer at this time. Patient's name and were not confirmed. CC left detailed message educating patient on importance of following up with provider following an inpatient admission. Provided contact information requesting a call back in order to schedule the HDF appointment. Patient educated via voicemail on extended clinic hours on Mondays and Wednesdays, and Walk-In Urgent Care Located in [facility]. Patient provided with after-hours line for [facility], , which offer night time triage service and option to transfer to ironer or presser provider if needed. CC will request Discharge summaries to scan into chart. CC will place additional outreach callwithin 2-5 business days. documented in this encounter Plan of Treatment Upcoming Encounters Date Type Department Care Team (Late st Contact Info) Description 12/14/2024 1:30 PM EDT Office Visit [facility] [address] [facility] [place] [address] Tristan Worley MD [address] [place] [address] documented as of this encounter Visit Diagnoses Not on filedocumented in this encounter Additional Health Concerns Assessment Noted Time PHQ-9 Depression Total Score: 0 04/27/20 23 11:22 AM EDT documented as of this encounter Care Teams Melter Caster Relationship Specialty Start Date End Date Tristan Worley MD [address] [facility] [place] [address] PCP - General Internal Medicine 11/17/18 documented as of this encounter
--- OUTSIDE RECORDS SUMMARY | 2024-11-27 11:11 | XMS_ITS | Encounter Summary ---
Author Organization [employer] Address [address] [facility] 7t [place] [address] Care Team Providers Care General Hardware Salesperson Name Role Phone Tristan Worley MD Primary [...] Description 12/14/2024 1:30 PM EDT Office Visit [facility] [address] [facility] [address] Tristan Worley MD [address] [place], [place] [phone] documented as of this encounter Procedures Procedure Name Priority Date/Time Associated Diagnosis Comments TSH Routine 11/13/2024 10:09 AM EST T4, FREE Routine 11/13/2024 10:09 AM EST CALCIUM Routine 11/13/2024 10:09 AM EST ALBUMIN Routine 11/13/2024 10:09 AM EST documented in this encounter Results * (ABNORMAL) TSH (11/13/2024 10:09 AM EST) Thyroid Stimulating Hormone 4.08(H) 0.32 - 4.0 uIU/mL [facility] Comment:Note: A sustained TS H level above 2.5 uIU/mL may warrant further investigation. TSH 3rd Generation ([facility]) 11/13/2024 10:0 9 AM EST 11/13/2024 10:09 AM EST us Generic External Data Provider LAB BLOOD ORDERAB LES Final Result [facility] [address] [place] [phone] * T4, Free (11/13/2024 10:09 AM EST) Free T4 (Free Thyroxine) 0.90 0.71 - 1.85 ng/dL [facility] 11/13/2024 10:0 9 AM EST 11/13/2024 10:09 AM EST us Generic External Data Provider LAB BLOOD ORDERAB LES Final Result Performing Organization Address [facility] de Phone Number [facility] [address] [place] [phone] * Albumin (11/13/2024 10:09 AM EST) Albumin Level 4.0 3.5 - 5.0 g/dL [facility] 11/13/2024 10:0 9 AM EST 11/13/2024 10:09 AM EST us Generic External Data Provider LAB BLOOD ORDERAB LES Final Result Performing Organization Address [facility] de Phone Number [facility] [address] [place] [phone] * (ABNORMAL) Calcium (11/13/2024 10:09 AM EST) Pathologist [facility] Calcium 7.3(L) 8.4 - 10.2 mg/dL [facility] 11/13/2024 10:0 9 AM EST 11/13/2024 10:09 AM EST Generic External Data Provider LAB BLOOD ORDERAB LES Final Result Performing Organization Address [facility] de Phone Number [facility] [address] [place] [phone] documented in this encounter Visit Diagnoses Not on filedocumented in this encounter Additional Health Concerns Assessment Noted Time PHQ-9 Depression Total Score: 0 04/27/20 23 11:22 AM EDT documented as of this encounter Care Teams General Hardware Salesperson Relationship Specialty Start Date End Date Tristan Worley MD [address] [place] [address] PCP - General Internal Medicine 11/17/18 documented as of this encounter
--- OUTSIDE RECORDS SUMMARY | 2024-11-27 11:11 | XMS_ITS | Encounter Summary ---
Author Organization [employer] Address [address] [facility] 7 [place] [address] Care Team Providers Care Manager Web Name Role Phone Tristan Worley MD Primary Care Provide r Reason for Visit * Reason Comments Care Coordination CM/CHW outreach Encounter Details Date Type Department Care Team (Latest Contact Info) Description 11/14/[address] [facility] MEDICINE [address] [place], [place] [phone] Tristan Worley MD [address] [place] [address] Care Coordination (CM/CHW outreach) Social History Tobacco Use Types Packs/Day Years [...] AM EDT documented as of this encounter Progress Notes * Gabrielle Carpio - 11/14/2024 3:10 PM EST CHW Gabrielle Carpio placed outbound call to [facility] for discharge coordination as patient was admitted on 11/13/2024. CHW was connect to patient's nurse station and confirmed patient is still admitted andno discharge date yet. Patient's name, and confirmed. CHW to follow up within the next 2 days. CHW placed call to patient, patient answered and stated she is still currently admitted and is unsure of discharge date. Patient agreed to CM program and has scheduled to have CM tele assessment with CM Brisa Cruz RN on 11/28/24 at 1pm, CHW will remind patient of appt. documented in this encounter Plan of Treatment Upcoming Encounters Date Type Department Care Team (Late st Contact Info) Description 12/14/2024 1:30 PM EDT Office Visit [facility] MEDICINE [address] [place] [address] Tristan Worley MD [address] [place] [address] documented as of this encounter Visit Diagnoses Not on filedocumented in this encounter Additional Health Concerns Assessment Noted Time PHQ-9 Depression Total Score: 0 04/27/20 23 11:22 AM EDT documented as of this encounter Care Teams Manager Web Relationship Specialty Start Date End Date Tristan Worley MD [address] [place] [address] PCP - General Internal Medicine 11/17/18 documented as of this encounter
[2024-11-27 11:24] LABS: Albumin Level 4.3 g/dL (3.5-5.0); Calcium 8.9 mg/dL (8.4-10.2)
[2024-11-27 11:47] LABS: Free T4 (Free Thyroxine) 1.07 ng/dL (0.71-1.85); Thyroid Stimulating Hormone 3.24 uIU/mL (0.32-4.0)
== END 2024-11-27 10:04 | disposition home or self-care (01) ==
LOC: HO.LAB 10:03
PROVIDERS: PCP Internal Medicine; Visit Provider Internal Medicine Endocrinology, Diabetes & Metabolism
DX: E20.9 Hypoparathyroidism, unspecified (principal); E89.0 Postprocedural hypothyroidism
CPT/HCPCS: 36415; 82040; 82310; 84439; 84443

== ENCOUNTER 2024-12-11 09:56 | Outpatient (AMB) | payer MEDICAID, SELFPAY ==
--- NOTE | 2024-12-11 10:01 | A.OFFVIS_ITS ---
Vital Signs 12/11/24 10:03 Height 5 ft 3 in Weight 131 lb 13.383 oz BMI 23.4 BP 94/54 L Blood Pressure Location Rt brachial Position Sitting Pulse 86 Pulse Source Pulse Oximeter Pulse Oximetry (%) 98 Oxygen Delivery Method Room Air Intake Visit Reasons: surg hypothyroidism and hypoparathyroidism Intake Note: Patient present today for Post-surgical hypothyroidism follow up visit. Personnel Technician Required: Yes Personnel Technician Language: Automotive Electrician Helper Services: Personnel Technician Present Personnel Technician Name: Duyen [id number] Information Interpreted: non-clinical & clinical Accompanied by: Self / Same As Patient Allergies No Known Allergies [No Known Allergies*] Allergy (Verified 12/11/24 10:03) HPI Comments Details: 34 YO F with no significant PMHx who is seen in consultation for multinodular thyroid at the request of PCP. Was initially diagnosed with multinodular thyroid in 2022 with thyroid US revealing a large left lobe thyroid nodule. She does report dysphagia as well as hoarseness of voice. She also reports tenderness in the neck. Reports weight gain and hair loss. Otherwise denies symptoms of hyper or hypothyroidism. Denies any history of head or neck irradiation. Does report a Family history of thyroid cancer in her Grandfather. Thyroid US: 01/11/2023 Right Thyroid Lobe: 4.8 x 1.4 x 1.2 cm, volume 4.2 mL. Parenchyma: The gland echotexture is homogeneous. Thyroid vascularity is increased. Left Thyroid Lobe: 5.9 x 2.4 x 3.9 cm, volume 28.9 mL. Parenchyma: The gland echotexture is heterogeneous. Thyroid vascularity is increased. Isthmus: 0.3 cm in maximum AP dimension. Estimated total number of nodules greater than or equal to 1 cm: 1. Appeals Reviewer Veteran nodules are described as follows: 1. Location: Right inferior. ?? ? Size: 0.5 x 0.3 x 0.4 cm, volume 0.03 mL. ?? ? Nodule characteristics: ?? ? Composition: Solid (2). ?? ? Echogenicity: Isoechoic (1). ?? ? Shape: Not taller than wide (0). ?? ? Margins: Smooth (0). ?? ? Echogenic Foci: None (0). ?? ? ACR TI-RADS total points: 3 ?? ? ACR TI-RADS category: 3 2. Location: Left mid. ?? ? Size: 4.5 x 2.3 x 3.6 cm, volume 19.7 mL. ?? ? Nodule characteristics: ?? ? Composition: Solid (2). ?? ? Echogenicity: Hypoechoic (2). ?? ? Shape: Not taller than wide (0). ?? ? Margins: Smooth (0). ?? ? Echogenic Foci: None (0). ?? ? ACR TI-RADS total points: 4 ?? ? ACR TI-RADS category: 4 NODES: No lymphadenopathy is seen in the tissue surrounding the thyroid gland. Labs: S/ P total thyroidectomy by with benign pathology. Currently on 75 mcg levothyroxine. on calcium 200 mg b.i.d. No plans for . was on calcitriol postoperatively transient hypoparathyroidism currently off. Repeat labs showed normal calcium No syncope or SZ. The patient is a 34-year-old female presenting with hypoparathyroidism. She experiences fatigue and tingling sensations despite normal calcium levels and ongoing treatment with calcium and vitamin D supplements. Although her lab results indicate normal calcium levels, she feels lethargic and desires an improvement in her quality of life. There is a concurrent stable diagnosis of hypothyroidism, with the patient taking 75 mcg of levothyroxine daily. [facility] Medical History (Updated 08/16/23 @ 07:57 by Olivier Camarena MD) Hypoparathyroidism Hypothyroidism, postsurgical Thyroid neoplasm Vitamin D deficiency Multinodular thyroid Surgical History Hx of total thyroidectomy Family History Father Medical history unknown Mother HTN (hypertension) Paternal Grandfather Thyroid condition Social History Alcohol intake: never Patient Tobacco Use Status: Never used Tobacco Physical Exam Vital Signs: Last Vital Signs Pulse 86 12/11/24 10:03 BP 94/54 L 12/11/24 10:03 Pulse Ox 98 12/11/24 10:03 Oxygen Delivery Method Room Air 12/11/24 10:03 BMI result Body Mass Index 23.4 Assessment & Plan Assessment & Plan (1) Hypothyroidism, postsurgical: Code(s): E89.0 - Postprocedural hypothyroidism Category: Medical Plan: This is 34-year-old female status post total thyroidectomy for multinodular goiter. She is currently on 75 mcg levothyroxine. She appears to be clinically and biochemically euthyroid. Plan is to continue the current dose of levothyroxine. In terms of hypothyroidism, the patient can follow up with the primary care provider and returned back to endocrinology as needed (2) Hypoparathyroidism: Code(s): E20.9 - Hypoparathyroidism, unspecified Category: Medical Plan: Currently off calcitriol and on calcium supplementation. Last calcium was low normal. 1. Hypoparathyroidism: The patient demonstrates persistent symptoms of fatigue and tingling despite stabilized calcium levels with current supplementation. I introduced Yorvipath, a potential therapeutic option for symptom relief. It requires daily administration with oversight due to withdrawal risks. A specialty pharmacy process is underway for access. Monitoring will adjust according to the patient's response post-initiation. 2. Hypothyroidism: The current management with 75 mcg levothyroxine remains effective. Ongoing care and prescription refills will be coordinated with the primary care provider. The patient had an opportunity to ask questions regarding treatment plan. The patient expressed understanding and agreement with the above treatment plan. Patient was informed and verbally consented to the use of an ambient scribe for clinic note documentation during this visit. - Continue current calcium and vitamin D supplements until instructed otherwise. - Maintain levothyroxine 75 mcg daily for hypothyroidism management as previously prescribed. - Upon approval, begin Yorvipath injections daily and closely monitor for any changes in symptoms or calcium level issues. - Follow up in 7 to 10 days after starting Yorvipath for lab evaluations. - The patient had an opportunity to ask questions regarding treatment plan. The patient expressed understanding and agreement with the above treatment plan. Patient was informed and verbally consented to the use of an ambient scribe for clinic note documentation during this visit. Coding Level of Care Code Est Pt Level 3 (03074) Diagnoses Hypothyroidism, postsurgical E89.0 Hypoparathyroidism E20.9
[2024-12-11 10:03] VITALS: BP 94/54; PULSE 86; O2SAT 98; BMI 23.4
== END 2024-12-11 10:39 | disposition home or self-care (01) ==
LOC: HO.ENCR 09:57
PROVIDERS: PCP Internal Medicine; Visit Provider Internal Medicine Endocrinology, Diabetes & Metabolism
DX: E89.0 Postprocedural hypothyroidism (principal); E20.9 Hypoparathyroidism, unspecified
CPT/HCPCS: 99213

== ENCOUNTER → 2024-12-11 09:56 | Outpatient (BNVA) | payer MEDICAID, SELFPAY | PROVIDERS: PCP Internal Medicine; Visit Provider Internal Medicine Endocrinology, Diabetes & Metabolism | DX: E89.0 Postprocedural hypothyroidism (principal); E20.9 Hypoparathyroidism, unspecified; R13.10 Dysphagia, unspecified; R49.0 Dysphonia | CPT/HCPCS: 99212 ==

== ENCOUNTER 2024-12-14 14:27 | Outpatient (REF) | payer MEDICAID, SELFPAY ==
[2024-12-15 14:33] LABS: Calcium, Ionized 4.8 mg/dL (4.7-5.5)
== END 2024-12-14 14:28 | disposition home or self-care (01) ==
LOC: HO.HHCL 14:27
PROVIDERS: Visit Provider Internal Medicine
DX: E83.51 Hypocalcemia (principal)
CPT/HCPCS: 36415; 82310; 82330

== ENCOUNTER 2025-01-18 11:50 | Outpatient (REF) | payer MEDICAID, SELFPAY ==
[2025-01-18 12:14] LABS: Albumin Level 4.5 g/dL (3.5-5.0); Calcium 9.2 mg/dL (8.4-10.2)
== END 2025-01-18 11:51 | disposition home or self-care (01) ==
LOC: HO.LAB 11:50
PROVIDERS: PCP Internal Medicine; Visit Provider Internal Medicine Endocrinology, Diabetes & Metabolism
DX: E20.9 Hypoparathyroidism, unspecified (principal)
CPT/HCPCS: 36415; 82040; 82310

== ENCOUNTER 2025-03-13 09:37 | Outpatient (AMB) | payer MEDICAID, SELFPAY ==
[2025-03-13 09:41] VITALS: BP 100/60; PULSE 76; O2SAT 98; BMI 24.2
--- NOTE | 2025-03-13 09:41 | A.OFFVIS_ITS ---
Vital Signs 03/13/25 09:41 Height 5 ft 3 in Weight 136 lb 7.458 oz BMI 24.2 BP 100/60 Blood Pressure Location Lt brachial Position Sitting Pulse 76 Pulse Source Pulse Oximeter Pulse Oximetry (%) 98 Oxygen Delivery Method Room Air Intake Visit Reasons: surg hypothyroidism and hypoparathyroidism Intake Note: Patient present today for Post-surgical hypothyroidism follow up visit. Samples And Repairs Preparer Required: Yes Samples And Repairs Preparer Services: Samples And Repairs Preparer Present Samples And Repairs Preparer Name: Pramod [id number] Information Interpreted: non-clinical & clinical Accompanied by: Child Allergies No Known Allergies (No Known Allergies*) Allergy (Verified 03/13/25 09:44) Medication List - Last Reconciled 03/13/25 by Olivier Camarena MD albuterol sulfate 90 mcg/actuation 2 puffs inhalation Q6H PRN calcitriol 0.25 mcg PO DAILY calcium citrate 200 mg PO BID cholecalciferol (vitamin D3) 25 mcg PO DAILY levothyroxine 75 mcg PO DAILY palopegteriparatide (Yorvipath) 18 mcg subcut DAILY HPI Comments Details: 35 YO F with no significant PMHx who is seen in consultation for multinodular thyroid at the request of PCP. Was initially diagnosed with multinodular thyroid in 2022 with thyroid US rev ealing a large left lobe thyroid nodule. She does report dysphagia as well as hoarseness of voice. She also reports tenderness in the neck. Reports weight gain and hair loss. Otherwise denies symptoms of hyper or hypothyroidism. Denies any history of head or neck irradiation. Does report a Family history of thyroid cancer in her Grandfather. Thyroid US: 01/11/2023 Right Thyroid Lobe: 4.8 x 1.4 x 1.2 cm, volume 4.2 mL. Parenchyma: The gland echotexture is homogeneous. Thyroid vascularity is increased. Left Thyroid Lobe: 5.9 x 2.4 x 3.9 cm, volume 28.9 mL. Parenchyma: The gland echotexture is heterogeneous. Thyroid vascularity is increased. Isthmus: 0.3 cm in maximum AP dimension. Estimated total number of nodules greater than or equal to 1 cm: 1. Naval Aircrewman Operator nodules are described as follows: 1. Location: Right inferior. ?? ? Size: 0.5 x 0.3 x 0.4 cm, volume 0.03 mL. ?? ? Nodule characteristics: ?? ? Composition: Solid (2). ?? ? Echogenicity: Isoechoic (1). ?? ? Shape: Not taller than wide (0). ?? ? Margins: Smooth (0). ?? ? Echogenic Foci: None (0). ?? ? ACR TI-RADS total points: 3 ?? ? ACR TI-RADS category: 3 2. Location: Left mid. ?? ? Size: 4.5 x 2.3 x 3.6 cm, volume 19.7 mL. ?? ? Nodule characteristics: ?? ? Composition: Solid (2). ?? ? Echogenicity: Hypoechoic (2). ?? ? Shape: Not taller than wide (0). ?? ? Margins: Smooth (0). ?? ? Echogenic Foci: None (0). ?? ? ACR TI-RADS total points: 4 ?? ? ACR TI-RADS category: 4 NODES: No lymphadenopathy is seen in the tissue surrounding the thyroid gland. Labs: S/ P total thyroidectomy by with benign pathology. Currently on 75 mcg levothyroxine. on calcium 200 mg b.i.d. No plans for . was on calcitriol postoperatively transient hypoparathyroidism currently off. Repeat labs showed normal calcium No syncope or SZ. The patient is a 35-year-old female presenting for management of hypoparathyroidism. The condition arose following the destruction of her parathyroid glands, leading to an underactive state. The patient has been advised to continue calcium and vitamin D supplementation, including calcitriol, as her last calcium level was stable in January. Efforts to obtain insurance coverage for an injectable medication have been unsuccessful, with the insurance company denying coverage twice. The patient has experienced occasional tingling around her mouth and spasms in her hands, but these symptoms have improved. [facility] Medical History (Updated 08/16/23 @ 07:57 by Olivier Camarena MD) Hypoparathyroidism Hypothyroidism, postsurgical Thyroid neoplasm Vitamin D deficiency Multinodular thyroid Surgical History Hx of total thyroidectomy Family History Father Medical history unknown Mother HTN (hypertension) Paternal Grandfather Thyroid condition Social History (Reviewed 12/11/24 @ 10:04 by PETER Ibarra Alcohol intake: never Patient Tobacco Use Status: Never used Tobacco Physical Exam Vital Signs: Last Vital Signs Pulse 76 03/13/25 09:41 BP 100/60 03/13/25 09:41 Pulse Ox 98 03/13/25 09:41 Oxygen Delivery Method Room Air 03/13/25 09:41 BMI result Body Mass Index 24.2 Assessment & Plan Assessment & Plan (1) Hypoparathyroidism: Code(s): E20.9 - Hypoparathyroidism, unspecified Category: Medical Plan: Currently on calcitriol and on calcium supplementation. Last calcium was low normal. 1. Hypoparathyroidism The patient continues to manage her condition with calcium and vitamin D supplementation, including calcitriol. Efforts to obtain insurance coverage for an injectable medication have been unsuccessful, and the patient is advised to continue her current regimen. Follow-up is planned in six months, with blood work to be done a week prior to the visit. During the visit, we discussed the challenges in obtaining insurance coverage for the injectable medication for hypoparathyroidism. I advised the patient to continue with her current calcium and vitamin D regimen, including calcitriol, as her calcium levels were stable. We also reviewed the insurance company's suggestion of an off-label osteoporosis medication, which is not indicated for her condition. I emphasized the importance of continuing her current treatment and scheduled a follow-up in six months, with blood work to be done a week prior. - Continue taking calcium and vitamin D supplements, including calcitriol. - Monitor for any symptoms such as tingling or spasms and report if they worsen. - Schedule follow-up appointment in six months and complete blood work a week prior. The patient had an opportunity to ask questions regarding treatment plan. The patient expressed understanding and agreement with the above treatment plan. Patient was informed and verbally consented to the use of an ambient scribe for clinic note documentation during this visit. Orders: Orders Albumin Level 6 Months E20.9 - Hypoparathyroidism, unspecified Calcium 6 Months E20.9 - Hypoparathyroidism, unspecified Coding Level of Care Code Est Pt Level 3 (69890) Diagnoses Hypoparathyroidism E20.9
--- OUTSIDE RECORDS SUMMARY | 2025-03-13 10:25 | XMS_ITS | Encounter Summary ---
Author Organization [employer] Address [address] [place] [address] Care Team Providers Care Special Education Teacher Name Role Phone Tristan Worley MD Primary Care Provide r Brisa Cruz RN Unavailable [phone] Reason for Visit * Reason Comments Med Refill Encounter Details Date Type Department Care Team ([facility] st Contact Info) Description 01/12/2025 Refill [facility] [address] [place], [place] [phone] Tristan Worley MD [address], [place] [phone] Low vitamin D level Social History Tobacco Use Types Packs/Day Years Used Date Smoking Tobacco: Never Passive Smoke Exposure: Never Smokeless Tobacco: Never Alcohol Use Standard Drinks/Week Comments Never 0 (1 standard drink = 0.6 oz pur e alcohol) Depression Answer Date Recorded Patient Health Questionnaire-9 Score 1 12/14/2024 Patient Health Questionnaire-9 Score 1 12/14/2024 Last PHQ-9: Questionnaire Data Not on file 0 12/14/2024 Housing Stability Answer Date Recorded What is your housing situation today? I have stephanie stacey 12/29/[address] you li ve. Do you have problems with any of the following? Pests such as bugs, ants, or mice 12/29/2024 Food Insecurity Answer Date Recorded Within the [...] Answer Date Recorded Patient Health Questionnaire-2 Score 1 12/14/2024 Internet Access Answer Date Recorded Internet Access Q1 Yes 12/14/2024 Internet Access Q2 Not on file 12/14/2024 Comments No Sex and Gender Information Value Date Recorded Sex Assigned at Female 07/20/2022 10:19 AM EDT Legal Sex Female 10:19 AM EDT Gender Identity Female 07/20/2022 10:19 AM EDT Sexual Orientation Straight 07/20/2022 10 :19 AM EDT documented as of this encounter Plan of Treatment Upcoming Encounters Date Type Department Care Team (Late st Contact Info) Description 04/12/2025 10:15 AM EDT Office Visit [facility] [address] [place] [address] Tristan Worley MD [address] [place] [address] documented as of this encounter Visit Diagnoses Diagnosis Low vitamin D level documented in this encounter Additional Health Concerns Assessment Noted Time PHQ-9 Depression Total Score: 1 12/15/19 25 1:44 PM EDT documented as of this encounter Care Teams Special Education Teacher Relationship Specialty Start Date End Date Tristan Worley MD [address] [place] [address] PCP - General Internal Medicine 11/17/18 Brisa Cruz, MIRNA [address] [place] [id number] Home Extension AgentRadiologic Technologist 11/30/24 02/20/25 documented as of this encounter
== END 2025-03-13 10:23 | disposition home or self-care (01) ==
LOC: HO.ENCR 09:38
PROVIDERS: PCP Internal Medicine; Visit Provider Internal Medicine Endocrinology, Diabetes & Metabolism
DX: E20.9 Hypoparathyroidism, unspecified (principal)
CPT/HCPCS: 99213

== ENCOUNTER → 2025-03-13 09:37 | Outpatient (BNVA) | payer MEDICAID, SELFPAY | PROVIDERS: PCP Internal Medicine; Visit Provider Internal Medicine Endocrinology, Diabetes & Metabolism | DX: E89.0 Postprocedural hypothyroidism (principal); E20.9 Hypoparathyroidism, unspecified | CPT/HCPCS: 99212 ==

== ENCOUNTER 2025-04-12 16:22 | Outpatient (REF) | payer MEDICAID, SELFPAY ==
--- OUTSIDE RECORDS SUMMARY | 2025-04-12 16:26 | XMS_ITS | Clinical Summary ---
Author Organization [facility] Address [address] [place] [address] Care Team Providers Care Web Software Engineer Name Role Phone Unavailable Primary Care Provider [...] Cervical Cancer Screening: P ap Smear 01/24/2009 HIV Screening 05/15/2024 Hepatitis C Screening 05/15/2024 Social Influencers of Health Screening 05/15/2024 COVID-19 Vaccine ( - 2023-2 5 season) 2024 Depression Screening 09/20/2024 Influenza Vaccine (#1) 2025 HIB Vaccines Aged Out No longer eligi [...] age to complete this topic Meningococcal B Vaccine Aged Out No l onger eligible based on patient's age to complete this topic Pneumococcal Vaccine: Pediat rics (0 to 5 Years) and At-Risk Patients (6 to 49 Years) Aged Out No longer eligible b ased on patient's age to complete this topic RSV Immunization Patients Un larisa 20 months Aged Out No longer eligible b ased on patient's age to complete this topic Varicella Vaccines Aged Out No longer eligible based on patient's age to complete this topic
--- OUTSIDE RECORDS SUMMARY | 2025-04-12 16:26 | XMS_ITS | Encounter Summary ---
Author Organization [employer] Address [address] [place] [address] Care Team Providers Care Home Care Specialist Name Role Phone Tristan Worley MD Primary Care Provide r Brisa Cruz RN Unavailable [phone] Reason for Visit * Reason Comments Med Refill Encounter Details Date Type Department Care Team ([facility] st Contact Info) Description 01/12/2025 Refill [facility] [address] [place], [place] [phone] Tristan Worley MD [address], [place] [phone] Low vitamin D level Social History Tobacco [...] as of this encounter Plan of Treatment Not on file documented as of this encounter Visit Diagnoses Diagnosis Low vitamin D level documented in this encounter Additional Health Concerns Assessment Noted Time PHQ-9 Depression Total Score: 1 12/15/19 25 1:44 PM EDT documented as of this encounter Care Teams Home Care Specialist Relationship Specialty Start Date End Date Tristan Worley MD [address] [place] [address] PCP - General Internal Medicine 11/17/18 Brisa Cruz RN [address] [place] [id number] Fruit Or Nut Farm WorkerProcess Control Engineer 11/30/24 02/20/25 documented as of this encounter
[2025-04-12 20:12] LABS: Bacterial Vaginosis PCR NEGATIVE (Negative); Candida Group PCR NOT DETECTED (Not Detect); Candida glab krusei PCR NOT DETECTED (Not Detect); Trichomonas vaginalis PCR NOT DETECTED (Not Detect)
[2025-04-12 22:25] LABS: CT PCR Urine NOT DETECTED (Not Detect.); NG PCR Urine NOT DETECTED (Not Detect.)
== END 2025-04-12 16:23 | disposition home or self-care (01) ==
LOC: HO.HHCLNP 16:22
PROVIDERS: Visit Provider Internal Medicine
DX: N76.0 Acute vaginitis (principal); R30.0 Dysuria
CPT/HCPCS: 81515; 87086; 87147; 87491; 87591

== ENCOUNTER 2025-05-28 | Outpatient (REF) | payer MEDICAID, SELFPAY ==
--- OUTSIDE RECORDS SUMMARY | 2025-05-28 10:00 | XMS_ITS | Encounter Summary ---
Author Organization [employer] Address [address] [facility] [address] [place] [address] Care Team Providers Care Grades 1 Thru 6 Home Teacher Name Role Phone Tristan Worley MD Primary Care Provide r Reason for Visit * Reason Comments Nasal Congestion Fever Rash Encounter Details Date Type Department Care Team ([facility] st Contact Info) Description 05/28/2025 10:00 AM EDT Office Visit [facility] [address] [place] [phone] Rosalba Dawson MD [address] [place] [address] Viral syndrome (Primary Dx); Viral URI Social History Tobacco Use Types Packs/Day Years [...] AM EDT documented as of this encounter Last Filed Vital Signs Vital Sign Reading Time Taken Comments Blood Pressure 111/66 05/28/2025 9:47 AM EDT Pulse 92 05/28/2025 9:47 AM EDT Temperature 36.7 C (98 F) 05/28/2025 9:47 AM EDT Respiratory Rate 17 05/28/2025 9:47 AM EDT Oxygen Saturation 97% 05/28/2025 9:47 AM EDT Inhaled Oxygen Concentration - - Weight 65.2 kg (143 lb 12.8 oz) 05/28/2025 9:47 AM EDT Height - - Body Mass Index 25.47 04/12/2025 10:27 AM EDT documented in this encounter Progress Notes * Rosalba Camacho MD - 05/28/2025 10:00 AM EDT Images from the original note were not included. SUBJECTIVE: Robb Ceron is a 35 y.o. year old female who presents for acute visit . Acute Concerns: Patient reports about 3 days of congestion, cough, body aches and malaise she also reports she noticed a rash on her anterior chest and arms, reports daughter is also sick with similar symptoms she goes to [facility] Social History Social History Narrative Not on file Problem List[1] Thyroid nodule Mild persistent asthma without complication Preventative health care Postoperative hypothyroidism Hospital discharge follow-up Hypoparathyroidism ([facility]/HCC) Contraception management Dysuria Vaginosis Viral syndrome Family History[2] Review of Systems Constitutional: Positive for chills, fatigue and fever. Negative for activity change, appetite change, diaphoresis and unexpected weight change. HENT: Positive for congestion, rhinorrhea, sinus pressure, sneezing and sore throat. Negative for dental problem, drooling, ear discharge, ear pain, facial swelling, hearing loss, mouth sores, nosebleeds, postnasal drip, sinus pain, tinnitus, trouble swallowing and voice change. Respiratory: Positive for cough. Negative for apnea, choking, chest tightness, shortness of breath,wheezing and stridor. Cardiovascular: Negative. Gastrointestinal: Negative. Skin: Positive for rash. OBJECTIVE: Vitals: 05/28/25 0947 BP: 111/66 BP Location: Right arm Patient Position: Sitting BP Cuff Size: Adult Pulse: 92 Resp: 17 Temp: 98 ??F (36.7 ??C) TempSrc: Temporal SpO2: 97% Weight: 143 lb 12.8 oz (65.2 kg) Physical Exam Constitutional: Appearance: Normal appearance. Cardiovascular: Rate and Rhythm: Normal rate and regular rhythm. Pulmonary: Effort: Pulmonary effort is normal. Breath sounds: Normal breath sounds. Abdominal: General: Abdomen is flat. Palpations: Abdomen is soft. Musculoskeletal: Right lower leg: No edema. Left lower leg: No edema. Skin: Findings: Rash present. Rash is papular. Neurological: Mental Status: She is alert. Follow Up: No follow-ups on file. Medications Ordered Prior to Encounter[3] Problem List Items Addressed This Visit Viral syndrome - Primary Drink plenty of fluids and rest I prescribed for her as needed and cough syrup If symptoms persist or worsen I advise to come back for reevaluation Relevant Medications acetaminophen (Tylenol Extra Strength) 500 MG tablet [id number]-[id number]-[id number] 30-2-10 MG/5ML syrup Other Visit Diagnoses Viral URI Relevant Medications kheghpminyfyelq-lfqifuovmqdwjwb-GO 30-2-10 MG/5ML syrup Other Relevant Orders POCT Rapid COVID Ag (Completed) POCT rapid strep A manually resulted (Completed) Influenza A (ID NOW Rapid Molecular) (Completed) Influenza B (ID NOW Rapid Molecular) (Completed) [1] Patient Active Problem List Diagnosis Thyroid nodule Mild persistent asthma without complication Preventative health care Postoperative hypothyroidism Hospital discharge follow-up Hypoparathyroidism (CMS/HCC) Contraception management Dysuria Vaginosis Viral syndrome [2] Family History Problem Relation Name Age of Onset Asthma Son Diabetes Maternal Grandmother Stroke Maternal Grandmother Cancer Maternal Grandfather [3] Current Outpatient Medications on File Prior to Visit Medication Sig Dispense Refill albuterol 108 (90 Base) MCG/ACT inhaler Inhale 2 puffs every 4 (four) hours if needed for wheezing or shortness of breath. Inhale 2 puff by inhalation every 4- 6 hours needed 18 g 1 Blood Pressure kit Use once a week 1 kit 0 calcitriol (Rocaltrol) 0.25 MCG capsule Take 1 capsule by mouth Once per day. Calcium Citrate + D3 Maximum tablet Take 2 tablets by mouth 2 times daily. cholecalciferol (Vitamin D-3) 25 MCG (1000 UT) capsule Take 1 capsule (25 mcg) by mouth Once per day. 60 capsule 3 fluticasone (Flovent) 44 MCG/ACT inhaler Inhale 1-2 puffs in the morning and at bedtime. Rinse mouth with water after use to reduce aftertaste and incidence of candidiasis. Do not swallow. 10.6 g 11 levothyroxine (Synthroid, Levoxyl) 75 MCG tablet Take 1 tablet (75 mcg) by mouth Once per day. 30 tablet 11 medroxyPROGESTERone (Depo-Provera) 150 MG/ML injection Inject 1 mL (150 mg) into the muscle every 3(three) months for 4 doses. 1 mL 3 Current Facility-Administered Medications on File Prior to Visit Medication Dose Route Frequency Provider Last Rate Last Admin medroxyPROGESTERone (Depo-Provera) injection 150 mg 150 mg Intramuscular q3 months Soila Felipe RN 150 mg at 12/14/24 1430 documented in this encounter Miscellaneous Notes * Assessment & Plan Note - Rosalba Camacho MD - 05/28/2025 10:27 AM EDT Associated Problem(s): Viral syndrome Drink plenty of fluids and rest I prescribed for her as needed and cough syrup If symptoms persist or worsen I advise to come back for reevaluation documented in this encounter Plan of Treatment Not on file documented as of this encounter Procedures Procedure Name Priority Date/Time Associated Diagnosis Comments POCT INFLUENZA B (ID NOW RAPID MOLECULAR) Routine 05/28/2025 10:01 AM EDT Viral URI POCT INFLUENZA A (ID NOW RAPID MOLECULAR) Routine 05/28/2025 10:01 AM EDT Viral URI POCT RAPID COVID ANTIGEN Routine 05/28/2025 9:55 AM EDT Viral URI POCT RAPID STREP A Routine 05/28/2025 9: 55 AM EDT Viral URI documented in this encounter Results * Influenza B (ID NOW Rapid Molecular) (05/28/2025 10:01 AM EDT) Influenza B Negative Negative, Indeterminate [facility] Swab 05/28/2025 10:0 1 AM EDT us Rosalba Camacho MD POINT OF CARE TEST EN TER/EDIT ORDERABLES Final Result [facility] [address] [place] [phone] * Influenza A (ID NOW Rapid Molecular) (05/28/2025 10:01 AM EDT) Influenza A Negative Negative, Indeterminate [facility] Swab 05/28/2025 10:0 1 AM EDT us Rosalba Camacho MD POINT OF CARE TEST EN TER/EDIT ORDERABLES Final Result [facility] [address] [place] [phone] * POCT rapid strep A manually resulted (05/28/2025 9:55 AM EDT) Rapid Strep A Screen Negative Negative, None Detected Swab 05/28/2025 9:55 AM EDT us Rosalba Camcaho MD POINT OF CARE TEST EN TER/EDIT ORDERABLES Final Result * POCT Rapid COVID Ag (05/28/2025 9:55 AM EDT) Rapid COVID Ag Negative Swab 05/28/2025 9:55 AM EDT us Rosalba Camacho MD POINT OF CARE TEST EN TER/EDIT ORDERABLES Final Result documented in this encounter Visit Diagnoses Diagnosis Viral syndrome- Primary Unspecified viral infection, in conditions classified elsewhere and of unspecified site Viral URI Acute upper respiratory infections of unspecified site documented in this encounter Additional Health Concerns Assessment Noted Time PHQ-9 Depression Total Score: 1 12/15/19 25 1:44 PM EDT documented as of this encounter Care Teams Grades 1 Thru 6 Home Teacher Relationship Specialty Start Date End Date Tristan Worley MD [address] [place] [phone] PCP - General Internal Medicine 11/17/18 documented as of this encounter
[2025-05-28 12:11] LABS: Albumin Level 4.5 g/dL (3.5-5.0); Calcium 8.6 mg/dL (8.4-10.2)
--- OUTSIDE RECORDS SUMMARY | 2025-05-28 13:56 | XMS_ITS | Clinical Summary ---
Author Organization [employer] Address [address] [facility] [address] [place] [address] Care Team Providers Care Conference Interpreter Name Role Phone Tristan Worley MD Primary Care Provide r Allergies No known active allergies Medications fluticasone (Flovent) 44 MCG/ACT inhaler Inhale 1-2 puffs in the morning and at bedtime. Rinse mouth with water after use to reduce aftertaste and incidence of candidiasis. Do not swallow. 10.6 g 11 3 Active calcitriol (Rocaltrol) 0.25 MCG capsule Take 1 capsule by mouth Once per day. 5 Active Calcium Citrate + D3 Maximum tablet Take 2 tablets by mouth 2 times daily. 5 Active levothyroxine (Synthroid, Levoxyl) 75 MCG tabletIndications: Postoperative hypothyroidism Take 1 tablet (75 mcg) by mouth Once per day. 30 tablet 11 5 Active medroxyPROGESTERon e (Depo-Provera) 150 MG/ML injection Inject 1 mL (150 mg) into the muscle every 3 (three) months for 4 doses. 1 mL 3 5 025 Active Blood Pressure kitIndications:Hyp otension, unspecified hypotension type Use once a week 1 kit 5 Active albuterol 108 (90 Base) MCG/ACT inhalerIndications :Mild persistent asthma with acute exacerbation Inhale 2 puffs every 4 (four) hours if needed for wheezing or shortness of breath. Inhale 2 puff by inhalation every 4-6 hours needed 18 g 1 5 Active cholecalciferol (Vitamin D-3) 25 MCG (1000 UT) capsuleIndications :Low vitamin D level Take 1 capsule (25 mcg) by mouth Once per day. 60 capsule 3 5 Active acetaminophen (Tylenol Extra Strength) 500 MG tabletIndications: Viral syndrome Take 2 tablets (1,000 mg) by mouth every 8 (eight) hours if needed for moderate pain for up to 10 days. 30 tablet 5 025 Active brompheniramine-ps eudoephedrine-DM 30-2-10 MG/5ML syrupIndications:V iral syndrome Take 5 mL by mouth if needed in the morning, at noon, in the evening, and at bedtime for allergies for up to 10 days. 120 mL 5 025 Active Hospital, Clinic, or Other Facility Administered Medication Ordered Dose Route Frequency Start Date End Date Status medroxyPROGESTERone (Depo-Provera) injection 150 mgIndications:Encounte r for initial prescription of injectable contraceptive 150 mg IM Every 3 months 12/14/2024 12/09/2025 Active Active Problems Problem Noted Date Diagnosed Date Viral syndrome 05/28/2025 Assessment & Plan (05/28/2025 10:28 AM EDT): Drink plenty of fluids and rest I prescribed for her as needed and cough syrup If symptoms persist or worsen I advise to come back for reevaluation Dysuria 04/12/2025 Assessment & Plan (04/12/2025 4:22 PM EDT): Pt with c/o dysuria x 1 day Urine dipstick: Trace Leuks Vaginal exam: Indicative of vaginosis Plan: Ucx Bactrim DS ( early UTI ), Diflucan x 1 and Metrogel Vaginal Vaginosis 04/12/2025 Assessment & Plan (04/12/2025 4:23 PM EDT): Pt with vaginal discharge x 3 days Exam indicative of vaginosis, likely Gardnerella Plan: Metrogel, Diflucan, BV testing sent Hospital discharge follow-up 12/14/2024 Assessment & Plan (12/14/2024 1:52 PM EDT): Patient is here for a f/u after a recent Hospital discharge Pt was admitted from: 11/13-11/16/2024 She was sent for admission from Endocrinology due to symptomatic hypocalcemia. In the Hospital she was started on IV calcium gluconate drip with good results. Patient was discharged on improvement of calcium. She was sent home on calcitriol 0.25mcg daily, vitamin D 1000 IU, and Calcium citrate 2 tabs twice daily. Here for follow up. Feeling well Plan: Repeat Calcium levels Pt will continue to follow up with Endocrinology, last seen 12/11/2024 Hypoparathyroidism 12/14/2024 Assessment & Plan (04/12/2025 10:35 AM EDT): Under the care of Endocrinology Last seen 03/13/2025 Dr. Camarena mentions that she demonstrates persistent symptoms of fatigue and tingling despite stabilized calcium levels with supplementation. Unfortunately they have been unable to obtain Yorvipath Assessment & Plan (12/14/2024 1:49 PM EDT): Under the care of Endocrinology Last seen 12/11/2024 Dr. Camarena mentions that she demonstrates persistent symptoms of fatigue and tingling despite stabilized calcium levels with supplementation. He introduced Yorvipath, as a potential therapeutic option for symptom relief. He mentions that It requires daily administration with oversight due to withdrawal risks. A specialty pharmacy process is underway for access. He mentions on his last note that he will adjust according to the patient's response post-initiation. Contraception management 12/14/2024 Assessment & Plan (12/14/2024 2:14 PM EDT): Pt has been on Depo Provera Urine test: neg LMP 11/23/2024. Pt counseled about the use of condoms for the next 7 days Postoperative hypothyroidism 09/22/2023 Assessment & Plan (04/12/2025 10:34 AM EDT): Pt with hypothyroidsm as a result of thyroidectomy Currently taking 75 mcg levothyroxine Under the care of endocrinology as well last seen 03/13/2025 I will continue to prescribe for patient Lab Results Component Value Date TSH 3.24 11/27/2024 F/u 6 months Assessment & Plan (12/14/2024 1:51 PM EDT): Pt with hypothyroidsm as a result of thyroidectomy Currently taking 75 mcg levothyroxine I will continue to prescribe for patient Lab Results Component Value Date TSH 3.24 11/27/2024 F/u 6 months Thyroid nodule 01/19/2023 Assessment & Plan (04/27/2023 3:44 PM EDT): Patient is here for a follow up She is Following with [facility], last available consult note from 01/21/23 03/01/23: CT soft tissue neck revealed a large 3 x 3 x 4 cm left thyroid nodule displacing the trachea to the right. No enlarged lymph nodes. Had biopsy 2022. Pathology read as Suspicious for Malignancy ( category 5 ) I discussed case at length with Dr Harrington. She recommended we referred patient to Dr richmond ENT and Endocrine surgeon. She mentioned that she would contact Dr richmond directly to try and get her an appointment soon Patient agreeable with the Plan Assessment & Plan (03/31/2023 2:52 PM EDT): Following with [facility], last available consult note from 01/21/23 Pt continues with compressive symptoms, discussed during specialist appt 03/01/23: CT soft tissue neck revealed a large 3 x 3 x 4 cm left thyroid nodule displacing the trachea to the right. No enlarged lymph nodes. Reports plan for upcoming biopsy April 2023, provider called office to try to move up timeline ED/urgent care precautions reviewed Assessment & Plan (01/19/2023 8:33 AM EDT): Patient evaluated by NAIMA Farr for depo provera, during that evaluation pt with c/o enlarged thyroid gland. U/S ordered , done 01/11/2023 showed: 4.5 cm TR 4 left thyroid nodule that meets criteria for tissue sampling. Plan: FNA thyroid nodule Endocrinology referral Mild persistent asthma without complication 10/2022 Assessment & Plan (04/12/2025 10:35 AM EDT): No recent exacerbations On Flovent 110 mcg FU 6 months Assessment & Plan (01/26/2025 4:12 PM EDT): Avoid asthma triggers Use albuterol inhaler every 4-6 hours as needed Assessment & Plan (12/14/2024 1:54 PM EDT): No recent exacerbations On Flovent 110 mcg FU 3 months Assessment & Plan (04/27/2023 11:35 AM EDT): No recent exacerbations On Flovent 110 mcg FU 3 months Preventative health care 01/19/2023 Assessment & Plan (04/12/2025 10:35 AM EDT): Pap: 11/18/2023 Normal Assessment & Plan (12/14/2024 1:54 PM EDT): Pap: 11/18/2023 Normal Encounters Date Type Department Care Team Description 05/28/2025 10:00 AM EDT Office Visit [facility] [address] [place] [phone] Rosalba Dawson MD Viral syndrome (Primary Dx); Viral URI 05/28/2025 Orders Only GENERIC EXTERNAL DATA DEPARTMENT Provider, Generic External Data 05/28/2025 Travel 04/12/2025 10:15 AM EDT Office Visit [facility] [address] [place] [phone] Tristan Worley MD Postoperative hypothyroidism (Primary Dx); Hypoparathyroidism, unspecified hypoparathyroidism type (CMS/HCC); Mild persistent asthma without complication; Dysuria; Vaginosis; Low vitamin D level; Preventative health care 04/12/2025 Travel 04/05/2025 Patient Outreach [facility] [address] [place] [address] Tristan Worley MD Pre-visit Planning (SDOH was already completed ) from Last 3 Months Immunizations Immunization Administration Dates Next Due Influenza injectable quadrivalent [...] housing situation today? I have stephanie ibarra 12/29/[address] you li [...] 12.8 oz) 05/28/2025 9:47 AM EDT Height 160 cm (5' 3 ) 04/12/2025 10:27 AM EDT Body Mass Index 25.47 04/12/2025 10:27 AM EDT Plan of Treatment Health Maintenance Due Date Last Done Comments HIV Screening 1990 Family Planning (PISQ) 01/24/2003 HPV Vaccines (1 - 3-dose series) 01/24/2003 Hepatitis C Screening 01/24/2006 Hepatitis B Vaccines (1 of 3 - 19+ 3-dose series) 01/24/2007 Pneumococcal Vaccine: Pediatrics (0 to 5 Years) and At-Risk Patients (6 to 49) Years (1 of 2 - PCV) 01/24/2007 COVID-19 Vaccine (3 - season) 2025 09/22/2021, 09/01/2021 Influenza Vaccine (#1) 2025 , 11/14/2024, 07/09/2021, Additional history exists Alcohol/Substance Use Screening 12/14/2025 12/14/2024 Depression Screening 12/14/2025 12/14/2024, 12/15/19 Disability Screening 12/14/2025 12/14/2024 SDOH Screening 12/29/2025 12/29/2024 Tobacco Screening 04/12/2026 04/12/2025 Cervical Cancer Screening 11/17/2028 HPV/Cotest 11/17/2028 11/17/2023 Pap Smear 11/17/2028 11/17/2023, 06/26/2020 DTaP/Tdap/Td Vaccines (3 - Td or Tdap) 05/01/2031 05/01/2021, 03/11/2015 Zoster Vaccines [...] Priority Date/Time Associated Diagnosis Comments ALBUMIN Routine 05/28/2025 11:28 AM EDT CALCIUM Routine 05/28/2025 11:28 AM EDT POCT INFLUENZA B (ID NOW RAPID MOLECULAR) Routine 05/28/2025 10:01 AM EDT Viral URI POCT INFLUENZA A (ID NOW RAPID MOLECULAR) Routine 05/28/2025 10:01 AM EDT Viral URI POCT RAPID STREP A Routine 05/28/2025 9: 55 AM EDT Viral URI POCT RAPID COVID ANTIGEN Routine 05/28/2025 9:55 AM EDT Viral URI CHLAMYDIA/TRICHOMONA S/NEISSERIA GONORRHOEAE, PCR, URINE Routine 04/12/2025 11:02 AM EDT Vaginosis CULTURE, URINE, ROUTINE Routine 04/12/2025 11:02 AM EDT Dysuria Vaginosis BACTERIAL VAGINOSIS PANEL Routine 04/12/2025 11:02 AM EDT Vaginosis POCT URINALYSIS DIPSTICK Routine 04/12/2025 10:49 AM EDT Dysuria HPV MRNA E6/E7 REFLEX TO HPV 16, 18/45 Routine 11/17/2023 10:43 AM EST PAP SMEAR Routine 11/17/2023 10:43 AM EST Cervical cancer screening from Last 3 Months or Most Recently Relevant to Health Maintenance Results * Calcium (05/28/2025 11:28 AM EDT) Calcium 8.6 8.4 - 10.2 mg/dL [facility] 05/28/2025 11:2 8 AM EDT 05/28/2025 11:28 AM EDT [facility] - 05/28/2025 12:11 PM EDT PATIENT WAS ADVISED BY THE OFFICE TO DO LABS NOW us Generic External Data Provider LAB BLOOD ORDERAB LES Final Result Performing Organization Address City/[facility]/ZIP Co de Phone Number [facility] [address] [place] [phone] * Albumin (05/28/2025 11:28 AM EDT) Albumin Level 4.5 3.5 - 5.0 g/dL [facility] 05/28/2025 11:2 8 AM EDT 05/28/2025 11:28 AM EDT [facility] - 05/28/2025 12:11 PM EDT PATIENT WAS ADVISED BY THE OFFICE TO DO LABS NOW us Generic External Data Provider LAB BLOOD ORDERAB LES Final Result Performing Organization Address City/[facility]/ZIP Co de Phone Number [facility] [address] [place] [phone] * Influenza B (ID NOW Rapid Molecular) (05/28/2025 10:01 AM EDT) [facility] Influenza B Negative Negative, Indeterminate [facility] Swab 05/28/2025 10:0 1 AM EDT Rosalba Camacho MD POINT OF CARE TEST EN TER/EDIT ORDERABLES Final Result Performing Organization Address [facility] Co de Phone Number [facility] [address] [place] [phone] * Influenza A (ID NOW Rapid Molecular) (05/28/2025 10:01 AM EDT) [facility] Influenza A Negative Negative, Indeterminate [facility] Swab 05/28/2025 10:0 1 AM EDT Rosalba Camacho MD POINT OF CARE TEST EN TER/EDIT ORDERABLES Final Result Performing Organization Address [facility] Co de Phone Number [facility] [address] [place] [address] [phone] * POCT Rapid COVID Ag (05/28/2025 9:55 AM EDT) [facility] Rapid COVID Ag Negative Swab 05/28/2025 9:55 AM EDT Rosalba Camacho MD POINT OF CARE TEST EN TER/EDIT ORDERABLES Final Result * POCT rapid strep A manually resulted (05/28/2025 9:55 AM EDT) [facility] Rapid Strep A Screen Negative Negative, None Detected Swab 05/28/2025 9:55 AM EDT Rosalba Camacho MD POINT OF CARE TEST EN TER/EDIT ORDERABLES Final Result * Chlamydia/N. Gonorrhoeae, PCR, Urine (04/12/2025 11:02 AM EDT) CT PCR, Urine NOT DETECTED Not Detect. [facility] Comment:A not detected test result does not exclude the possibilityof infection because test results can be affected byimproper specimen collection, concurrent antibiotic therapy,or the number of organisms in the specimen which may bebelow the sensitivity of the test. As with many diagnostictests, results from the Xpert CT/NG assay should beinterpreted in conjunction with other laboratory andclinical data available to the clinician.The Xpert CT/NG assay should not be used for the evaluationof suspected sexual abuse or for other medico-legalindications. Additional testing is recommended in anycircumstance when false positive or false negative resultscould lead to adverse medical, social or psychologicalconsequences. NG PCR, Urine NOT DETECTED Not Detect. [facility] Comment:A not detected test result does not exclude the possibilityof infection because test results can be affected byimproper specimen collection, concurrent antibiotic therapy,or the number of organisms in the specimen which may bebelow the sensitivity of the test. As with many diagnostictests, results from the Xpert CT/NG assay should beinterpreted in conjunction with other laboratory andclinical data available to the clinician.The Xpert CT/NG assay should not be used for the evaluationof suspected sexual abuse or for other medico-legalindications. Additional testing is recommended in anycircumstance when false positive or false negative resultscould lead to adverse medical, social or psychologicalconsequences. Urine (Urine, Random) 04/12/2025 11:02 AM EDT 04/12/2025 4:24 PM EDT us Tristan Ceron MD LAB URINE ORDERABLES Final Result [facility] [address] [place] [phone] * Bacterial Vaginosis Panel (04/12/2025 11:02 AM EDT) Pathologist [facility] TRICHOMONAS VAGINALIS DETECTION BY PCR NOT DETECTED Not Detect [facility] BACTERIAL VAGINOSIS DETECTION BY PCR NEGATIVE Negative [facility] Comment:The BV organism targ ets of the Xpert Xpress MVP test can becommensal in women; Xpert Xpress MVP positive results forbacterial vaginosis should be considered in conjunction withother clinical and patient information to determine thedisease status. Organisms that are not detected by the XpertXpress MVP test have also been reported to be associatedwith BV and aerobic vaginitis.The Xpert Xpress MVP test performance has not been evaluatedin patients under the age of 14. TRISHA GROUP DETECTION BY PCR NOT DETECTED Not Detect [facility] Trisha glab krusei PCR NOT DETECTED Not Detect [facility] Swab Vaginal structure / Unknown 04/12/2025 11:02 AM EDT 04/12/2025 4:24 PM EDT Tristan Ceron MD LAB MICROBIOLOGY - GE NERAL ORDERABLES Final Result Performing Organization Address City/[facility]/ZIP Co de Phone Number [facility] [address] [place] [phone] * Culture, Urine, Routine (04/12/2025 11:02 AM EDT) Urine Urine specimen obtained by clean catch procedure / Unknown 04/12/2025 11:02 AM EDT 04/12/2025 4:24 PM EDT Comment:UACC Narrative [facility] - 04/14/2025 11:34 AM EDT Strep agalactiae (Grp B) Quant 10,000 to 50,000 cfu/mL Susc N/A Susceptibility not routinely performed on this isolate. Specimen Source: Urine clean catch Tristan Ceron MD LAB MICROBIOLOGY - GE NERAL ORDERABLES Final Result Performing Organization Address City/[facility] Co de Phone Number [facility] [address] [place] [address] [phone] * POCT Urinalysis (04/12/2025 10:49 AM EDT) Color, UA Yellow Clarity, UA Clear Glucose, UA Negative Bilirubin, UA Negative Ketones, UA Negative Spec Grav, UA 1.015 Blood, UA Negative Negative, None Detected pH, UA 6.0 Protein, UA Negative Urobilinogen, UA 0.2 Leukocytes, UA Trace Negative, Rare, Trace Nitrite, UA Negative Negative, None Detected Appearance, UA yellow QC Media Lot # [id number] Lot# Expiration Date [id number] Urine 04/12/2025 10:4 9 AM EDT Tristan Ceron MD POINT OF CARE TEST EN TER/EDIT ORDERABLES Final Result * HPV mRNA E6/E7 w/Reflex to HPV Genotypes 16, 18/45 (11/17/2023 10:43 AM EST) HPV nRNA E6/E7 Not Detected Not Detected [facility] Comment:Methodology: Transcr iption-Mediated AmplificationThis assay detects E6/E7 viral messenger RNA (mRNA) from 14high-risk HPV types (16,18,31,33,35,39,45,51,52,56,58,59,66,68).Cervical sources are required for HPV testing.If a vaginal source from a patient who has had atotal hysterectomy with removal of cervix wassubmitted, please contact the testing laboratoryfor alternative testing options.For additional information, please refer [email or web address]/UIA809s5(This link if provided for information/educational purposes only.)THIS TEST WAS PERFORMED AT:[facility] [place] [phone] VILLATORO MD HPV mRNA E6/E7 [facility] HPV 16 RNA [facility] HPV 18/45 RNA [facility] 11/17/2023 10:4 3 AM EST 11/18/2023 10:00 AM EST Sandra WHITE LAB CYTOLOGY ORDERABLES F inal Result [facility] [address] [place] [phone] * Pap Smear (11/17/2023 10:43 AM EST) Swab Cervix uteri structure / Unknown 11/17/2023 10:43 AM EST 11/18/2023 10:00 AM EST Narrative [facility] - 12/01/2023 4:15 PM EDT ----- ------- Name: Robb Ceron Age/Sex: 33/F : 1990 Unit#: [id number] Attend Dr: SANDRA BERNARDO CNM Re11/17/23 Status: DEP [facility]ch[facility] ----- ------- SPEC : [id number] RECD: 11/18/23-1000 STATUS: KARMEN SWANSON NUM: [id number] GILL: 11/17/23-[address] [facility] [address]: SANDRA BERNARDO CNM ENTERED: 11/18/23-1152 SP TYPE: Pap Smr OT DR: ORDERED: Pap Smear Interpretation Satisfactory for evaluation. Mild inflammation. Negative for intraepithelial lesion or malignancy. HPV mRNA E6/E7: NOT DETECTED This assay detects E6/E7 viral messenger RNA (mRNA) from 14 high-risk HPV types (16, 18, 31, 33, 35, 39, 45, 51, 52, 56, 58, 59, 66, 68) HPV testing performed by [facility], [place], [place]. See reference laboratory portion of the EMR for entire report. Clinical Information LMP: Unknown date Previous PAP test: Unknown date/findings Material Received ThinPrep-Cervical ----- ------- Signed (signature on file) AJAY Garcia (ASCP) 12/01/23 1615 ----- ------- END OF REPORT Sandra Bernardo [facility] CYTOLOGY ORDERABLES F inal Result [facility] [address] [place] [address] [phone] from Last 3 Months or Most Recently Relevant to Health Maintenance Insurance * Guarantor: Robb Ceron Account Type Relation to Patient Date of Phone Billing Address Personal/Family Self 1990 [address] [place] [address] [employer] Care Teams Conference Interpreter Relationship Specialty Start Date End Date Tristan Worley MD [address] [place] [phone] PCP - General Internal Medicine 11/17/18
--- OUTSIDE RECORDS SUMMARY | 2025-05-28 13:56 | XMS_ITS | Encounter Summary ---
Author Organization [employer] Address [address] [facility] [address] [place] [address] Care Team Providers Care Mma Fighter Name Role Phone Tristan Worley MD Primary Care Provide r Encounter Details Date Type Department Care Team (Latest Contact Info) Description 05/28/2025 Travel Social History Tobacco Use Types Packs/Day Years [...] documented as of this encounter Care Teams Mma Fighter Relationship Specialty Start Date End Date Tristan Worley MD [address] [place] [phone] PCP - General Internal Medicine 11/17/18 documented as of this encounter
--- OUTSIDE RECORDS SUMMARY | 2025-05-28 13:56 | XMS_ITS | Clinical Summary ---
Author Organization [facility] Address [address] [place] [address] Care Team Providers Care Professor Of Geology Name Role Phone Unavailable Primary Care Provider [...] 05/15/2024 Social Influencers of Health Screening 05/15/2024 Depression Screening 09/20/2024 COVID-19 Vaccine (2023-2 5 season) 2025 Influenza Vaccine (#1) 2025 HIB Vaccines Aged [...]
--- OUTSIDE RECORDS SUMMARY | 2025-05-28 13:56 | XMS_ITS | Encounter Summary ---
Author Organization [employer] Address [address] [facility] [address] [place] [address] Care Team Providers Care Mortgage Originator Name Role Phone Tristan Worley MD Primary Care Provide r Brisa Cruz RN Unavailable [phone] Reason for Visit * Reason Comments Med Refill Encounter Details Date Type Department Care Team ([facility] st Contact Info) Description 01/12/2025 Refill [facility] [address] [place], [place] [phone] Tristan Worley MD [address] [place], [place] [phone] Low vitamin D level Social History Tobacco [...] documented as of this encounter Care Teams Mortgage Originator Relationship Specialty Start Date End Date Tristan Worley MD [address] [place] [address] PCP - General Internal Medicine 11/17/18 Brisa Cruz RN [address] [place] [phone] Laser Printing OperatorSignal Inspector 11/30/24 02/20/25 documented as of this encounter
--- OUTSIDE RECORDS SUMMARY | 2025-05-28 13:56 | XMS_ITS | Encounter Summary ---
Author Organization [employer] Address [address] [facility] 7t [place] [address] Care Team Providers Care Licensed Final Expense Agents Name Role Phone Tristan Worley MD Primary Care Provide r Encounter Details Date Type Department Care Team (Late st Contact Info) Description 05/28/2025 Orders Only GENERIC EXTERNAL DATA DEPARTMENT [...] is your housing situation today? I have stephaniehitesh ibarra 12/29/[address] you [...] Priority Date/Time Associated Diagnosis Comments CALCIUM Routine 05/28/2025 11:28 AM EDT ALBUMIN Routine 05/28/2025 11:28 AM EDT documented in this encounter Results * Albumin (05/28/2025 11:28 AM EDT) Albumin Level 4.5 3.5 - 5.0 g/dL [facility] 05/28/2025 11:2 8 AM EDT 05/28/2025 11:28 AM EDT [facility] - 05/28/2025 12:11 PM EDT PATIENT WAS ADVISED BY THE OFFICE TO DO LABS NOW us Generic External Data Provider LAB BLOOD ORDERAB LES Final Result [facility] [address] [place] [phone] * Calcium (05/28/2025 11:28 AM EDT) Calcium 8.6 8.4 - 10.2 mg/dL [facility] 05/28/2025 11:2 8 AM EDT 05/28/2025 11:28 AM EDT [facility] - 05/28/2025 12:11 PM EDT PATIENT WAS ADVISED BY THE OFFICE TO DO LABS NOW us Generic External Data Provider LAB BLOOD ORDERAB LES Final Result [facility] [address] [place] [phone] documented in this encounter Visit Diagnoses Not on filedocumented in this encounter Additional Health Concerns Assessment Noted Time PHQ-9 Depression Total Score: 1 12/15/19 25 1:44 PM EDT documented as of this encounter Care Teams Licensed Final Expense Agents Relationship Specialty Start Date End Date Tristan Worley MD [address] [place] [phone] PCP - General Internal Medicine 11/17/18 documented as of this encounter
--- OUTSIDE RECORDS SUMMARY | 2025-07-02 09:24 | XMS_ITS | Encounter Summary ---
Author Organization [employer] Address [address] [facility] 7t [place] [address] Care Team Providers Care Naval Aircrewman Name Role Phone Tristan Worley MD Primary Care Provide r Brisa Cruz RN Unavailable Reason for Visit * Reason Comments Med Refill Encounter Details Date Type Department Care Team ([facility] st Contact Info) Description 01/12/2025 Refill [facility] MED[facility] [address] [place], [place] [phone] Tristan Worley MD [address] [place], [place] [phone] Low vitamin D level Social History Tobacco [...] documented as of this encounter Care Teams Naval Aircrewman Relationship Specialty Start Date End Date Tristan Worley MD [address] [place] [address] PCP - General Internal Medicine 11/17/18 Brisa Cruz RN [address] [place] [phone] Machine Zipper TrimmerDistribution Designer 11/30/24 02/20/25 documented as of this encounter
--- OUTSIDE RECORDS SUMMARY | 2025-07-02 09:24 | XMS_ITS | Clinical Summary ---
Author Organization [employer] Address [address] [facility] 7t [place] [address] Care Team Providers Care Bottle Caser Name Role Phone Tristan Worley MD Primary Care Provide r Allergies No known active allergies Medications fluticasone (Flovent) 44 MCG/ACT inhaler Inhale 1-2 puffs in the morning and at bedtime. Rinse mouth with water after use to reduce aftertaste and incidence of candidiasis. Do not swallow. 10.6 g 11 03/30/20 23 Active calcitriol (Rocaltrol) 0.25 MCG capsule Take 1 capsule by mouth Once per day. 11/13/19 25 Active Calcium Citrate + D3 Maximum tablet Take 2 tablets by mouth 2 times daily. 11/16/19 25 Active levothyroxine (Synthroid, Levoxyl) 75 MCG tabletIndications: Postoperative hypothyroidism Take 1 tablet (75 mcg) by mouth Once per day. 30 tablet 11 12/15/19 25 Active medroxyPROGESTERon e (Depo-Provera) 150 MG/ML injection Inject 1 mL (150 mg) into the muscle every 3 (three) months for 4 doses. 1 mL 3 12/15/19 25 025 Active Blood Pressure kitIndications:Hyp otension, unspecified hypotension type Use once a week 1 kit 12/21/19 25 Active albuterol 108 (90 Base) MCG/ACT inhalerIndications :Mild persistent asthma with acute exacerbation Inhale 2 puffs every 4 (four) hours if needed for wheezing or shortness of breath. Inhale 2 puff by inhalation every 4-6 hours needed 18 g 1 01/27/20 25 Active cholecalciferol (Vitamin D-3) 25 MCG (1000 UT) capsuleIndications :Low vitamin D level Take 1 capsule (25 mcg) by mouth Once per day. 60 capsule 3 04/12/20 25 Active acetaminophen (Tylenol Extra Strength) 500 MG tabletIndications: Viral syndrome Take 2 tablets (1,000 mg) by mouth every 8 (eight) hours if needed for moderate pain for up to 10 days. 30 tablet 05/28/20 25 025 brompheniramine-ps eudoephedrine-DM 30-2-10 MG/5ML syrupIndications:V iral syndrome Take 5 mL by mouth if needed in the morning, at noon, in the evening, and at bedtime for allergies for up to 10 days. 120 mL 05/28/20 25 025 Hospital, Clinic, or Other Facility Administered Medication [...] a follow up She is Following with [facility], last available consult note from 01/21/23 [...] Plan (03/31/2023 2:52 PM EDT): Following with [facility], last available consult note from 01/21/23 [...] Description 05/28/2025 10:00 AM EDT Office Visit [facility] [address] [place] [phone] Rosalba Dawson MD Viral syndrome (Primary Dx); Viral URI 05/28/2025 Orders Only GENERIC EXTERNAL DATA DEPARTMENT Provider, Generic External Data 05/28/2025 Travel 04/12/2025 10:15 AM EDT Office Visit [facility] [address] [place] [phone] Tristan Worley MD Postoperative hypothyroidism (Primary Dx); Hypoparathyroidism, unspecified hypoparathyroidism type (CMS/HCC); Mild persistent asthma without complication; Dysuria; Vaginosis; Low vitamin D level; Preventative health care 04/12/2025 Travel 04/05/2025 Patient Outreach [facility] [address] [place] [address] Tristan Worley MD Pre-visit Planning (SDOH was [...] EDT) Calcium 8.6 8.4 - 10.2 mg/dL [facility] 05/28/2025 11:2 8 AM EDT 05/28/2025 11:28 AM EDT [facility] - 05/28/2025 12:11 PM EDT PATIENT WAS ADVISED BY THE OFFICE TO DO LABS NOW us Generic External Data Provider LAB BLOOD ORDERAB LES Final Result Performing Organization Address City/[facility]/ZIP Co de Phone Number [facility] [address] [place] [phone] * Albumin (05/28/2025 11:28 AM EDT) Albumin Level 4.5 3.5 - 5.0 g/dL [facility] 05/28/2025 11:2 8 AM EDT 05/28/2025 11:28 AM EDT [facility] - 05/28/2025 12:11 PM EDT PATIENT WAS ADVISED BY THE OFFICE TO DO LABS NOW us Generic External Data Provider LAB BLOOD ORDERAB LES Final Result Performing Organization Address City/[facility]/ZIP Co de Phone Number [facility] [address] [place] [phone] * Influenza B (ID NOW Rapid Molecular) (05/28/2025 10:01 AM EDT) [facility] Influenza B Negative Negative, Indeterminate [facility] Swab 05/28/2025 10:0 1 AM EDT us Rosalba Camacho MD POINT OF CARE TEST EN TER/EDIT ORDERABLES Final Result Performing Organization Address [facility] Co de Phone Number [facility] [address] [place] [phone] * Influenza A (ID NOW Rapid Molecular) (05/28/2025 10:01 AM EDT) [facility] Influenza A Negative Negative, Indeterminate [facility] Swab 05/28/2025 10:0 1 AM EDT Rosalba Camacho MD POINT OF CARE TEST EN TER/EDIT ORDERABLES Final Result Performing Organization Address [facility] Co de Phone Number [facility] [address] [place] [phone] * POCT Rapid COVID Ag (05/28/2025 9:55 AM EDT) [facility] Rapid COVID Ag Negative Swab 05/28/2025 9:55 AM EDT Rosalba Camacho MD POINT OF CARE TEST EN TER/EDIT ORDERABLES Final Result * POCT rapid strep A manually resulted (05/28/2025 9:55 AM EDT) [facility] Rapid Strep A Screen Negative Negative, None Detected Swab 05/28/2025 9:55 AM EDT us Rosalba Camacho MD POINT OF CARE TEST EN TER/EDIT ORDERABLES Final Result * Chlamydia/N. Gonorrhoeae, PCR, Urine (04/12/2025 11:02 AM EDT) CT PCR, Urine NOT DETECTED Not Detect. [facility] Comment:A not detected test result does [...] NG PCR, Urine NOT DETECTED Not Detect. [facility] Comment:A not detected test result does [...] Ceron MD LAB URINE ORDERABLES Final Result [facility] [address] [place] [phone] * Bacterial Vaginosis Panel (04/12/2025 11:02 AM EDT) Pathologist [facility] TRICHOMONAS VAGINALIS DETECTION BY PCR NOT DETECTED Not Detect [facility] BACTERIAL VAGINOSIS DETECTION BY PCR NEGATIVE Negative [facility] Comment:The BV organism targ ets of [...] DETECTION BY PCR NOT DETECTED Not Detect [facility] Trisha glab krusei PCR NOT DETECTED Not Detect [facility] Swab Vaginal structure / Unknown 04/12/2025 11:02 AM EDT 04/12/2025 4:24 PM EDT Tristan Ceron MD LAB MICROBIOLOGY - GE NERAL ORDERABLES Final Result Performing Organization Address City/[facility]/ZIP Co de Phone Number [facility] [address] [place] [phone] * Culture, Urine, Routine (04/12/2025 11:02 AM EDT) Urine Urine specimen obtained by clean catch procedure / Unknown 04/12/2025 11:02 AM EDT 04/12/2025 4:24 PM EDT Comment:UACC Narrative [facility] - 04/14/2025 11:34 AM EDT Strep agalactiae (Grp B) Quant 10,000 to 50,000 cfu/mL Susc N/A Susceptibility not routinely performed on this isolate. Specimen Source: Urine clean catch Tristan Ceron MD LAB MICROBIOLOGY - GE NERAL ORDERABLES Final Result Performing Organization Address City/[facility]/ZIP Co de Phone Number [facility] [address] [place] [phone] * POCT Urinalysis (04/12/2025 10:49 AM [...] Media Lot # [id number] Lot# Expiration Date [id number] Urine 04/12/2025 10:4 9 AM EDT Tristan Ceron MD POINT OF CARE TEST EN TER/EDIT ORDERABLES Final Result * HPV mRNA E6/E7 w/Reflex to HPV Genotypes 16, 18/45 (11/17/2023 10:43 AM EST) HPV nRNA E6/E7 Not Detected Not Detected [facility] Comment:Methodology: Transcr iption-Mediated AmplificationThis assay detects E6/E7 viral messenger RNA (mRNA) from 14high-risk HPV types (16,18,31,33,35,39,45,51,52,56,58,59,66,68).Cervical sources are required for HPV testing.If a vaginal source from a patient who has had atotal hysterectomy with removal of cervix wassubmitted, please contact the testing laboratoryfor alternative testing options.For additional information, please refer [email or web address]/faq/[email or web address](This link if provided for information/educational purposes only.)THIS TEST WAS PERFORMED AT:[employer] [place] [phone] VILLATORO MD HPV mRNA E6/E7 [facility] HPV 16 RNA [facility] HPV 18/45 RNA [facility] 11/17/2023 10:4 3 AM EST 11/18/2023 10:00 AM EST us Sandra WHITE LAB CYTOLOGY ORDERABLES F inal Result [facility] [address] [place] [phone] * Pap Smear (11/17/2023 10:43 AM EST) Swab Cervix uteri structure / Unknown 11/17/2023 10:43 AM EST 11/18/2023 10:00 AM EST Narrative [facility] - 12/01/2023 4:15 PM EDT ----- ------- Name: Robb Ceron Age/Sex: 33/F : 1990 Unit#: [id number] Attend Dr: SANDRA BERNARDO CNM Re11/17/23 Status: [facility] REF Location: HOHHCLNP Disch: ----- ------- SPEC : [id number] RECD: 11/18/23-1000 STATUS: KARMEN SWANSON NUM: [id number] GILL: 11/17/23-1043 [facility] DR: SANDRA BERNARDO CNM ENTERED: 11/18/23-1152 SP TYPE: Pap Smr OT : ORDERED: Pap Smear Interpretation Satisfactory for evaluation. Mild inflammation. Negative for intraepithelial lesion or malignancy. HPV mRNA E6/E7: NOT DETECTED This assay detects E6/E7 viral messenger RNA (mRNA) from 14 high-risk HPV types (16, 18, 31, 33, 35, 39, 45, 51, 52, 56, 58, 59, 66, 68) HPV testing performed by [employer], [place], [place]. See reference laboratory portion of the EMR for entire report. Clinical Information LMP: Unknown date Previous PAP test: Unknown date/findings Material Received ThinPrep-Cervical ----- ------- Signed (signature on file) AJAY Garcia (ASCP) 12/01/23 1615 ----- ------- END OF REPORT Sandra Bernardo [facility] CYTOLOGY ORDERABLES F inal Result [facility] [address] [place] [phone] from Last 3 Months or Most Recently Relevant to Health Maintenance Insurance * Guarantor: Rbob Ceron Account Type Relation to Patient Date of Phone Billing Address Personal/Family Self 1990 [address] [place] [address] [facility] Care Teams Bottle Caser Relationship Specialty Start Date End Date Tristan Worley MD [address] [place] [phone] PCP - General Internal Medicine 11/17/18
--- OUTSIDE RECORDS SUMMARY | 2025-07-02 09:24 | XMS_ITS | Clinical Summary ---
Author Organization [facility] Address [address] [place] [address] Care Team Providers Care Tower Truck Driver Name Role Phone Unavailable Primary Care Provider [...] Cervical Cancer Screening: P ap Smear 01/24/2009 HPV Vaccines (1 - 3-dose SCD M series) 01/24/2015 HIV Screening 05/15/2024 Hepatitis C Screening 05/15/2024 Social Influencers of Health Screening 05/15/2024 Depression Screening 09/20/2024 COVID-19 Vaccine (1 - 2023-2 5 season) 2025 Influenza Vaccine (#1) 2025 RSV Immunization Adult Patie nts (1 - 1-dose 75+ series) 01/24/2063 HIB [...]
== END 2025-05-28 11:15 | disposition home or self-care (01) ==
LOC: HO.LAB
PROVIDERS: PCP Internal Medicine; Visit Provider Internal Medicine Endocrinology, Diabetes & Metabolism
DX: E20.9 Hypoparathyroidism, unspecified (principal)
CPT/HCPCS: 36415; 82040; 82310

== ENCOUNTER 2025-07-04 09:11 | Outpatient (AMB) | payer MEDICAID, SELFPAY ==
[2025-07-04 09:15] VITALS: BP 100/62; PULSE 77; O2SAT 98; BMI 25.4
--- NOTE | 2025-07-04 09:15 | MHC.OFFVIS ---
Vital Signs 07/04/25 09:15 Height 5 ft 3 in Weight 143 lb 4.807 oz BMI 25.4 BP 100/62 Blood Pressure Location Rt brachial Position Sitting Pulse 77 Pulse Source Pulse Oximeter Pulse Oximetry (%) 98 Oxygen Delivery Method Room Air Intake Visit Reasons: Lab f/u Intake Note: Patient present today for Post-surgical hypothyroidism follow up visit. Sorter Operator Required: No Information Interpreted: non-clinical & clinical Accompanied by: Self / Same As Patient Allergies No Known Allergies (No Known Allergies*) Allergy (Verified 07/04/25 09:18) Medication List - Last Reconciled 07/04/25 by Olivier Camarena MD albuterol sulfate 90 mcg/actuation 2 puffs inhalation Q6H PRN calcitriol 0.25 mcg PO DAILY calcium citrate 200 mg PO BID cholecalciferol (vitamin D3) 25 mcg PO DAILY levothyroxine 75 mcg PO DAILY palopegteriparatide (Yorvipath) 18 mcg subcut DAILY HPI Comments Details: 35 YO F S/ P total thyroidectomy by with benign pathology and developed post-surgical hypothyroidism and hypoparathyroidism. Currently on 75 mcg levothyroxine. on calcium 200 mg b.i.d. as well as calcitriol 0.25 mcg No plans for . was on calcitriol postoperatively transient hypoparathyroidism currently off. Repeat labs showed normal calcium No syncope or SZ. The patient is a 35-year-old female presenting for management of hypoparathyroidism. The condition arose following the destruction of her parathyroid glands, leading to an underactive state. The patient has been advised to continue calcium and vitamin D supplementation, including calcitriol, as her last calcium level was stable in January. Efforts to obtain insurance coverage for an injectable Yorvipath medication have been unsuccessful, with the insurance company denying coverage twice. The patient has experienced occasional tingling around her mouth and spasms in her hands, but these symptoms have improved. [facility] Medical History Hypoparathyroidism Hypothyroidism, postsurgical Thyroid neoplasm Vitamin D deficiency Multinodular thyroid Surgical History Hx of total thyroidectomy Family History Father Medical history unknown Mother HTN (hypertension) Paternal Grandfather Thyroid condition Social History Alcohol intake: never Patient Tobacco Use Status: Never used Tobacco Physical Exam Vital Signs: Last Vital Signs Pulse 77 07/04/25 09:15 BP 100/62 07/04/25 09:15 Pulse Ox 98 07/04/25 09:15 Oxygen Delivery Method Room Air 07/04/25 09:15 BMI result Body Mass Index 25.4 Const Other: Absence of Chovstek's sign Assessment & Plan Assessment & Plan (1) Hypoparathyroidism: Code(s): E20.9 - Hypoparathyroidism, unspecified Category: Medical Plan: Currently on calcitriol and on calcium supplementation. Last calcium was low normal. 1. Hypoparathyroidism The patient continues to manage her condition with calcium and vitamin D supplementation, including calcitriol. Efforts to obtain insurance coverage for an injectable medication have been unsuccessful, and the patient is advised to continue her current regimen. We will check calcium, albumin, phosphorus, basic metabolic panel as well as 24 hour urine for calcium and creatinine and adjust calcitriol and calcium accordingly - Continue taking calcium and vitamin D supplements, including calcitriol. - Monitor for any symptoms such as tingling or spasms and report if they worsen. - Schedule follow-up appointment in six months and complete blood work a week prior. The patient had an opportunity to ask questions regarding treatment plan. The patient expressed understanding and agreement with the above treatment plan. Patient was informed and verbally consented to the use of an ambient scribe for clinic note documentation during this visit. Orders: Orders Calcium Today E20.9 - Hypoparathyroidism, unspecified Albumin Level Today E20.9 - Hypoparathyroidism, unspecified Phosphorus Today E20.9 - Hypoparathyroidism, unspecified Calcium, 24 Hr Ur Today E20.9 - Hypoparathyroidism, unspecified Creatinine, 24 Hr Group Today E20.9 - Hypoparathyroidism, unspecified Basic Metabolic Panel Today E20.9 - Hypoparathyroidism, unspecified Coding Level of Care Code Est Pt Level 3 (93529) Diagnoses Hypoparathyroidism E20.9
--- OUTSIDE RECORDS SUMMARY | 2025-07-04 10:12 | XMS_ITS | Clinical Summary ---
Author Organization [facility] Address [address] [place] [address] Care Team Providers Care Acute Care Nursing Assistant Name Role Phone Unavailable Primary Care Provider [...]
== END 2025-07-04 09:57 | disposition home or self-care (01) ==
LOC: HO.ENCR 09:12
PROVIDERS: PCP Internal Medicine; Visit Provider Internal Medicine Endocrinology, Diabetes & Metabolism
DX: E20.9 Hypoparathyroidism, unspecified (principal)
CPT/HCPCS: 99213

== ENCOUNTER → 2025-07-04 09:11 | Outpatient (BNVA) | payer MEDICAID, SELFPAY | PROVIDERS: PCP Internal Medicine; Visit Provider Internal Medicine Endocrinology, Diabetes & Metabolism | DX: E20.9 Hypoparathyroidism, unspecified (principal) | CPT/HCPCS: 99212 ==

== ENCOUNTER 2025-07-06 09:21 | Outpatient (REF) | payer MEDICAID, SELFPAY ==
[2025-07-06 11:48] LABS: Creatinine, mg/dL 73.85
[2025-07-06 13:53] LABS: Albumin Level 4.3 g/dL (3.5-5.0); Anion Gap 12 (12-20); Blood Urea Nitrogen 10 mg/dL (9-16); Calcium 8.4 mg/dL (8.4-10.2); Carbon Dioxide 25 mmol/L (22-29); Chloride 106 mmol/L (96-108); Estimated Glomerular Filt Rate > 60; Potassium 3.5 mmol/L (3.3-5.1); Sodium 139 mmol/L (135-145)
[2025-07-06 18:21] LABS: Total Volume 24 Hour Urine 1950 mL
[2025-07-09 20:48] LABS: Calcium/Creatinine Ratio 146 mg/g creat (30-275); Creatinine 24Hr Urine 1.48 g/24 h (0.50-2.15)
== END 2025-07-06 09:22 | disposition home or self-care (01) ==
LOC: HO.10HDL 09:21
PROVIDERS: Visit Provider Internal Medicine Endocrinology, Diabetes & Metabolism
DX: E20.9 Hypoparathyroidism, unspecified (principal)
CPT/HCPCS: 36415; 80048; 82040; 82340; 82570; 84100

== ENCOUNTER 2025-08-06 15:44 | Outpatient (AMB) | payer MEDICAID, SELFPAY ==
--- NOTE | 2025-08-06 15:47 | A.OFFVIS_ITS ---
Vital Signs 08/06/25 15:49 Height 5 ft 3 in Weight 143 lb 11.862 oz BMI 25.5 BP 92/60 Blood Pressure Location Rt brachial Position Sitting Pulse 89 Pulse Source Pulse Oximeter Pulse Oximetry (%) 98 Oxygen Delivery Method Room Air Intake Visit Reasons: Hypoparathyroidism Intake Note: Patient present today for Hypoparathyroidism follow up. Production Manager Required: Yes Production Manager Language: Sea Captain Services: Production Manager Present Production Manager Name: [facility] Viki Valdes Information Interpreted: non-clinical & clinical Accompanied by: Son Allergies No Known Allergies (No Known Allergies*) Allergy (Verified 08/06/25 15:53) HPI Comments Details: 35 YO F S/ P total thyroidectomy by with benign pathology and developed post-surgical hypothyroidism and hypoparathyroidism. Currently on 75 mcg levothyroxine. on calcium 200 mg b.i.d. as well as calcitriol 0.25 mcg No plans for . was on calcitriol postoperatively transient hypo parathyroidism currently off. Repeat labs showed normal calcium No syncope or SZ. The patient is a 35-year-old female presenting for management of hypoparathyroidism. The condition arose following the destruction of her parathyroid glands, leading to an underactive state. The patient has been advised to continue calcium and vitamin D supplementation, including calcitriol, as her last calcium level was stable in January. Efforts to obtain insurance coverage for an injectable Yorvipath medication have been unsuccessful, with the insurance company denying coverage twice. The patient has experienced occasional tingling around her mouth and spasms in her hands, but these symptoms have improved. [facility] Medical History Hypoparathyroidism Hypothyroidism, postsurgical Thyroid neoplasm Vitamin D deficiency Multinodular thyroid Surgical History Hx of total thyroidectomy Family History Father Medical history unknown Mother HTN (hypertension) Paternal Grandfather Thyroid condition Social History Alcohol intake: never Patient Tobacco Use Status: Never used Tobacco Physical Exam Vital Signs: Last Vital Signs Pulse 89 08/06/25 15:49 BP 92/60 08/06/25 15:49 Pulse Ox 98 08/06/25 15:49 Oxygen Delivery Method Room Air 08/06/25 15:49 BMI result Body Mass Index 25.5 Assessment & Plan Assessment & Plan (1) Hypoparathyroidism: Code(s): E20.9 - Hypoparathyroidism, unspecified Category: Medical Plan: Currently on calcitriol and on calcium supplementation. Last calcium was low normal. 24 hour urinary calcium was normal 1. Hypoparathyroidism The patient continues to manage her condition with calcium and vitamin D supplementation, including calcitriol. Efforts to obtain insurance coverage for an injectable medication have been unsuccessful, and the patient is advised to continue her current regimen. - Continue taking calcium and vitamin D supplements, including calcitriol. - Monitor for any symptoms such as tingling or spasms and report if they worsen. - Schedule follow-up appointment in six months and complete blood work 2 weesk prior. Orders: Orders Albumin Level 6 Months E20.9 - Hypoparathyroidism, unspecified Calcium 6 Months E20.9 - Hypoparathyroidism, unspecified Phosphorus 6 Months E20.9 - Hypoparathyroidism, unspecified Medications: Refilled calcium citrate 200 mg PO BID 60 tabs 5RF Coding Level of Care Code Est Pt Level 3 (28041) Diagnoses Hypoparathyroidism E20.9
[2025-08-06 15:49] VITALS: BP 92/60; PULSE 89; O2SAT 98; BMI 25.5
== END 2025-08-06 16:01 | disposition home or self-care (01) ==
LOC: HO.ENCR 15:44
PROVIDERS: PCP Internal Medicine; Visit Provider Internal Medicine Endocrinology, Diabetes & Metabolism
DX: E20.9 Hypoparathyroidism, unspecified (principal)
CPT/HCPCS: 99213

== ENCOUNTER → 2025-08-06 15:44 | Outpatient (BNVA) | payer MEDICAID, SELFPAY | PROVIDERS: PCP Internal Medicine; Visit Provider Internal Medicine Endocrinology, Diabetes & Metabolism | DX: E20.9 Hypoparathyroidism, unspecified (principal); E89.0 Postprocedural hypothyroidism; Z79.890 Hormone replacement therapy | CPT/HCPCS: 99212 ==